=== PATIENT | female | born 1985 | race Caucasian/White ===

== ENCOUNTER → 2019-11-29 | Outpatient (CLI) | payer OTHER ==
--- NOTE | 2019-11-29 10:46 | XR ---
Thoracic spine HISTORY: Chronic back pain Frontal and lateral views of the thoracic spine submitted on 3 images There is a gentle spinal curvature present. Thoracic vertebral bodies show preserved height and bone mineralization. Multilevel spondylosis is present. Disc spaces are maintained. No paraspinal mass. IMPRESSION: Thoracic spondylosis, mild spinal curvature.
--- NOTE | 2019-11-29 10:48 | XR ---
Lumbosacral spine HISTORY: Degeneration of intervertebral disc, chronic back pain 5 views of lumbosacral spine The lumbar vertebral bodies show preserved height, alignment, and bone mineralization. There is multi level spondylosis. Some loss of disc height present L4-5. Some mild sclerosis present in the posterio r elements of the lower lumbar spine. IMPRESSION: Degenerative disc disease.
== END | disposition home or self-care (01) ==
LOC: RADXRMAIN 09:58
PROVIDERS: ATTEND Family Medicine
DX: M47.814 Spondylosis without myelopathy or radiculopathy, thoracic region (principal); M51.36 Other intervertebral disc degeneration, lumbar region; M43.8X4 Other specified deforming dorsopathies, thoracic region
CPT/HCPCS: 72070; 72110

== ENCOUNTER → 2020-02-21 | Outpatient (CLI) | payer OTHER ==
--- NOTE | 2020-02-21 10:57 | MR ---
MR thoracic spine without contrast HISTORY: Chronic mid back pain Multiplanar multisequence imaging through the thoracic spine. Correlation to plain film 11/29/2019 There is no evident spinal stenosis. Facet arthropathy changes are present at the lower thoracic spin e. Thoracic cord signal is maintained. No significant foraminal encroachment or disc herniation. Thor acic vertebral bodies show preserved height and alignment. There is a mild spinal curvature present. Disc spaces are maintained with mild loss of disc height and signal at T7-8, T6-7. Mild spondylosis, endplate discogenic marrow signal change present at T7-8. Probable hemangioma present in the posterio r aspect of T8. There is loss of disc height, signal at C6-7, posterior disc herniation noted at C6-7 on the sagittal images. IMPRESSION: Degenerative disc disease as described. Mild spinal curvature. Facet arthropathy.
== END | disposition home or self-care (01) ==
LOC: RADMRIMAIN 09:19
PROVIDERS: ATTEND Family Medicine
DX: M51.34 Other intervertebral disc degeneration, thoracic region (principal); M47.894 Other spondylosis, thoracic region; M43.8X4 Other specified deforming dorsopathies, thoracic region
CPT/HCPCS: 72146

== ENCOUNTER → 2020-03-21 | Outpatient (CLI) | payer OTHER ==
[2020-03-21 11:49] VITALS: BP 134/92; PULSE 80; RESP 20
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
== END | disposition home or self-care (01) ==
LOC: PNWHC3 10:57
PROVIDERS: ATTEND Anesthesiology
DX: M51.34 Other intervertebral disc degeneration, thoracic region (principal); M51.36 Other intervertebral disc degeneration, lumbar region; M47.814 Spondylosis without myelopathy or radiculopathy, thoracic region; M47.816 Spondylosis without myelopathy or radiculopathy, lumbar region; E66.9 Obesity, unspecified; M19.90 Unspecified osteoarthritis, unspecified site; F17.200 Nicotine dependence, unspecified, uncomplicated; Z68.36 Body mass index [BMI] 36.0-36.9, adult; Z79.1 Long term (current) use of non-steroidal anti-inflammatories (NSAID); Z79.890 Hormone replacement therapy
CPT/HCPCS: 99211

== ENCOUNTER 2020-04-04 06:01 | Day surgery (SDC) | payer OTHER ==
[2020-04-02 11:59] VITALS: BMI 36.6
[2020-04-04 06:19] VITALS: TEMP 96.5
[2020-04-04] MEDS: LACTATED RINGERS 1,000 ML IV SCH ×2 (06:24→06:51)
[2020-04-04] MEDS ORDERED: IOPAMIDOL M200 10 ML VIAL ONE (06:52)
[2020-04-04] MEDS ORDERED: MIDAZOLAM 2 MG/2 ML VIAL ONE (06:52)
[2020-04-04] MEDS ORDERED: fentaNYL (PF) 50 MCG/ML 2 ML AMP ONE (06:52)
[2020-04-04] MEDS ORDERED: DEXAMETHASONE SOD PHOSPHATE 10 MG/ML 1 ML VIAL ONE (06:52)
--- NOTE | 2020-04-04 07:18 | P.PCN ---
Date of Procedure: 04/04/20 Procedure(s) Performed: Diagnosis: thoracic degenerative disc disease POSTOPERATIVE DIAGNOSIS: Diagnoses: thoracic degenerative disc disease PROCEDURE thoracic Epidural steroid injection under fluoroscopic guidance at the T7-8 interspace using right paramedian approach thoracic epidurogram ANESTHESIA: Local with 1% lidocaine 3 ml and IV sedation with Versed and fentanyl, sedation time 13 minutes Fluoroscopy was used for the procedure and images were saved in the radiology portion of the chart. EBL: Minimal PROCEDURE INDICATION: The patient presents with thoracic pain unresponsive to conservative treatment. PROCEDURE DESCRIPTION / TECHNIQUE: The patient was seen and identified in the preoperative area. Risks, benefits, complications including but not limited to infections ,bleeding ,allergic reaction to the medications ,nerve damage and incomplete pain relief, and alternatives were discussed with the patient. The patient agreed to proceed with the procedure and signed the consent. IV was started, and vital signs were stable. Patient was taken to the OR and time out was completed. The patient was placed in the prone position on procedure table and a pillow was placed under the chest area. The thoracic area was prepped and draped in the usual sterile fashion. Conscious sedation was used during the procedure to decrease patients anxiety. Vital signs was monitored during the entire procedure. Using anterior-posterior fluoroscopy, the C7-T8 interlaminar space was identified, after counting the levels from C7 down towards and the skin over this site was marked and then infiltrated with 1% lidocaine subcutaneously. Subsequently, a 20-gauge Tuohy epidural needle was inserted and advanced toward the epidural space using the loss of resistance technique and guided by AP and lateral fluoroscopy. The correct needle position in the epidural space was verified. After negative aspiration for blood and CSF and in the absence of paresthesias, Isovue 200 2 mL's was injected under live fluoroscopy with good epidural spread. After negative aspiration, a 5 ml mixture containing 10 mg of dexamethasone, 3 mL of preservative free normal saline and 1 mL of 1% lidocaine was injected. Needle was withdrawn intact, skin was cleansed, and bandages were applied. COMPLICATIONS: None DISPOSITION / PLANS: The patient was placed in a supine position and transferred to the recovery area in a stable condition for observation. There was no evidence of lower extremity motor or sensory deficit after the procedure. Patient was discharged from the recovery room after meeting discharge criteria. Home discharge instructions were given to the patient by the staff. The patient will be scheduled a repeat procedure in 4 weeks.
[2020-04-04 07:26] VITALS: PULSE 71; RESP 18
[2020-04-04] MEDS ORDERED: IV FLUID CONTINUATION 300 ML IV ONE (07:27)
[2020-04-04 07:41] VITALS: BP 136/89
--- NOTE | 2020-04-04 07:48 | FL ---
EXAMINATION TYPE: FL guided pain mgmt statistic DATE OF EXAM: 04/04/2020 FLUOROSCOPY Fluoroscopy time of 9 seconds was used during thoracic spine epidural injection. 3 image/s document/ s the procedure.
== END 2020-04-04 07:47 | disposition home or self-care (01) ==
LOC: ORPAIN 06:01
PROVIDERS: ATTEND Anesthesiology
DX: G89.29 Other chronic pain (principal); M51.34 Other intervertebral disc degeneration, thoracic region; M47.894 Other spondylosis, thoracic region; M47.896 Other spondylosis, lumbar region; M51.36 Other intervertebral disc degeneration, lumbar region; R20.0 Anesthesia of skin; E07.9 Disorder of thyroid, unspecified; G43.909 Migraine, unspecified, not intractable, without status migrainosus; M50.20 Other cervical disc displacement, unspecified cervical region; L80 Vitiligo; F17.200 Nicotine dependence, unspecified, uncomplicated; E66.9 Obesity, unspecified; Z68.36 Body mass index [BMI] 36.0-36.9, adult; Z91.410 Personal history of adult physical and sexual abuse; Z79.1 Long term (current) use of non-steroidal anti-inflammatories (NSAID); Z79.890 Hormone replacement therapy; Z79.899 Other long term (current) drug therapy; Z98.890 Other specified postprocedural states; Z98.51 Tubal ligation status; Z87.730 Personal history of (corrected) cleft lip and palate
CPT/HCPCS: 81025; 62321; J2250; J1100; J3010; Q9966; 99152

== ENCOUNTER → 2020-04-15 | Outpatient (CLI) | payer OTHER ==
--- NOTE | 2020-04-15 12:11 | MR ---
EXAMINATION TYPE: MR lumbar spine wo con DATE OF EXAM: 04/15/2020 COMPARISON: None HISTORY: 34-year-old female Chronic Lower Back Pain with Numbness into Left Hip and back of Left Leg on and off 10years TECHNIQUE: Multiplanar, multisequence images of the lumbar spine were acquired. FINDINGS: Vertebral body heights are preserved. Alignment is maintained. Mild heterogeneous marrow signal likel y red marrow. No suspicious bone marrow placement. Mild degenerative disc disease L4-L5 and L5-S1 with desiccated and bulging discs. Small posterior bebo ular fissure at L4-L5. Facet arthropathy also present in the lower lumbar spine. Conus medullaris is normal. No prevertebral or paravertebral soft tissue abnormality. From T12 through L4 levels, no spinal canal or foraminal stenosis. At L4-L5, facet arthropathy and mild disc bulge. No spinal canal stenosis. No significant neuroforami nal stenosis. At L5-S1, facet arthropathy. Bulging disc. There is mild right neuroforaminal stenosis. Disc material closely approaches but does not clearly abut the traversing left S1 nerve root. IMPRESSION: 1. Mild degenerative disc disease L4-L5 and L5-S1 characterized by desiccated and bulging discs. Smal l posterior annular fissure also noted at L4-L5. 2. No large focal disc herniation or spinal canal stenosis. 3. Changes result in mild right neuroforaminal stenosis at L5-S1. Disc material also closely approach es but does not clearly abut the traversing left S1 nerve root at this level.
== END | disposition home or self-care (01) ==
LOC: RADMRIMAIN 07:00
PROVIDERS: ATTEND Anesthesiology
DX: M48.061 Spinal stenosis, lumbar region without neurogenic claudication (principal); M51.16 Intervertebral disc disorders with radiculopathy, lumbar region; M51.17 Intervertebral disc disorders with radiculopathy, lumbosacral region
CPT/HCPCS: 72148

== ENCOUNTER 2020-05-02 08:46 | Day surgery (SDC) | payer OTHER ==
[2020-04-29 15:28] VITALS: BMI 38.8
[2020-05-02] MEDS ORDERED: LACTATED RINGERS 1,000 ML IV SCH (08:59)
[2020-05-02 09:08] VITALS: TEMP 97.9
[2020-05-02] MEDS ORDERED: LIDOCAINE 1% (10MG/ML) FOR IV START INTRADERMA ONE (09:15)
[2020-05-02] MEDS ORDERED: IOPAMIDOL M200 10 ML VIAL ONE (09:52)
[2020-05-02] MEDS ORDERED: DEXAMETHASONE SOD PHOSPHATE 10 MG/ML 1 ML VIAL ONE (09:52)
[2020-05-02] MEDS ORDERED: MIDAZOLAM 2 MG/2 ML VIAL ONE (09:52)
[2020-05-02] MEDS ORDERED: fentaNYL (PF) 50 MCG/ML 2 ML AMP ONE (09:52)
--- NOTE | 2020-05-02 10:25 | P.PCN ---
Date of Procedure: 05/02/20 Procedure(s) Performed: Diagnosis: thoracic degenerative disc disease POSTOPERATIVE DIAGNOSIS: Diagnoses: thoracic degenerative disc disease PROCEDURE thoracic Epidural steroid injection under fluoroscopic guidance at the T7-8 interspace using right paramedian approach thoracic epidurogram ANESTHESIA: Local with 1% lidocaine 3 ml and IV sedation with Versed and fentanyl, sedation time 13 minutes Fluoroscopy was used for the procedure and images were saved in the radiology portion of the chart. EBL: Minimal PROCEDURE INDICATION: The patient presents with thoracic pain unresponsive to conservative treatment. PROCEDURE DESCRIPTION / TECHNIQUE: The patient was seen and identified in the preoperative area. Risks, benefits, complications including but not limited to infections ,bleeding ,allergic reaction to the medications ,nerve damage and incomplete pain relief, and alternatives were discussed with the patient. The patient agreed to proceed with the procedure and signed the consent. IV was started, and vital signs were stable. Patient was taken to the OR and time out was completed. The patient was placed in the prone position on procedure table and a pillow was placed under the chest area. The thoracic area was prepped and draped in the usual sterile fashion. Conscious sedation was used during the procedure to decrease patients anxiety. Vital signs was monitored during the entire procedure. Using anterior-posterior fluoroscopy, the C7-T8 interlaminar space was identified, after counting the levels from C7 down towards and the skin over this site was marked and then infiltrated with 1% lidocaine subcutaneously. Subsequently, a 20-gauge Tuohy epidural needle was inserted and advanced toward the epidural space using the loss of resistance technique and guided by AP and lateral fluoroscopy. The correct needle position in the epidural space was verified. After negative aspiration for blood and CSF and in the absence of paresthesias, Isovue 200 2 mL's was injected under live fluoroscopy with good epidural spread. After negative aspiration, a 5 ml mixture containing 10 mg of dexamethasone, 3 mL of preservative free normal saline and 1 mL of 1% lidocaine was injected. Needle was withdrawn intact, skin was cleansed, and bandages were applied. COMPLICATIONS: None DISPOSITION / PLANS: The patient was placed in a supine position and transferred to the recovery area in a stable condition for observation. There was no evidence of lower extremity motor or sensory deficit after the procedure. Patient was discharged from the recovery room after meeting discharge criteria. Home discharge instructions were given to the patient by the staff. The patient will be scheduled for follow-up clinic in 6 weeks
[2020-05-02 10:42] VITALS: BP 132/87; PULSE 64; RESP 16
--- NOTE | 2020-05-02 15:00 | FL ---
EXAMINATION TYPE: FL guided pain mgmt statistic DATE OF EXAM: 05/02/2020 CLINICAL HISTORY: Epidural pain injection TECHNIQUE: Fluoroscopy. COMPARISON: None. FINDINGS: Fluoroscopic guidance was provided during procedure performed by Dr. Rojas. A total of 8 se conds of fluoroscopic time was utilized during the procedure and 3 spot images was acquired. Please s ee operative note for additional details. IMPRESSION: As Above.
== END 2020-05-02 10:48 | disposition home or self-care (01) ==
LOC: ORPAIN 08:46
PROVIDERS: ATTEND Anesthesiology
DX: M51.34 Other intervertebral disc degeneration, thoracic region (principal); M47.814 Spondylosis without myelopathy or radiculopathy, thoracic region
CPT/HCPCS: 81025; 62321; J2250; J1100; J3010; Q9966; 99152

== ENCOUNTER → 2020-05-08 | Outpatient (CLI) | payer OTHER ==
[2020-05-08 09:03] VITALS: BP 135/93; PULSE 84; RESP 16; TEMP 98.2
--- NOTE | 2020-05-08 09:23 | P.PAINPG ---
Subjective This is a 34-year-old patient referred by Dr. James Gunter with a chief complaint of chronic pain in thoracic and lumbar spine. We initially saw her in 03/2020 and we felt her pain may be coming from disc bulges in her thoracic spine specifically at T7-T8. Since we have seen her she has had 2 T7-T8 ILESI's on 04/04 and 05/02 we ordered a lumbar MRI which showed mild disc bulges at L4-L5 and L5-S1. She is here for follow up today. She notes of the thoracic epidural steroid injections helped her very much. Over today her main complaint is her low back. Pain starts in low back and radiates down to the left hip. Pain occasionally radiates down the anterior thigh and she also notes isolated bilateral foot numbness. An overall described as sharp stabbing and tingling. No alleviating factors in any form of physical activity exacerbates pain. Currently an 8/10. Pain is worse with activity, twisting, standing for long periods of time bending and better with repositioning, TENS unit. She works long hours at [employer], and pain is particularly on the days that she is working. Patient has been taking medications from primary care physician including Celebrex with minimal relief. In the past, she has been on oxycodone, [place], lortab with no significant benefit. Patient denies adverse drug effects from medications. Patient also denies new-onset weakness, bowel/bladder incontinence, or any other signs or symptoms of cauda equina syndrome. There are no signs of acute intoxication, and no indications of medication diversion or overuse. In addition to above, 13-point review of systems is also negative for chest pain, shortness of breath, changes in vision, changes in hearing, new onset weakness, abdominal pain, diarrhea, extreme fatigue, malaise, fever, skin changes, homicidal or suicidal ideation, or bowel or bladder incontinence. Physical exam: Vital Signs: Reviewed in EMR GENERAL: Well appearing, in no acute distress PSYCH: Mood and affect is appropriate. Awake, alert, and oriented SKIN: Skin color, texture, turgor normal, no rashes or lesions HEENT: Normocephalic, atraumatic. EOM intact CV: No pedal edema RESP: Respirations are unlabored, no audible wheezing GI: Abdomen non-distended MUSCULOSKELETAL: Bilateral upper and lower extremity strength is normal and symmetric. No atrophy or tone abnormalities are noted. Neck: No pain to palpation over the cervical paraspinous muscles. Beaver's sign negative. No obvious deformity or signs of trauma. Normal cervical lordotic curve and normal cervical spine range of motion Thoracic spine: Mild Tenderness to palpation along bilateral thoracic paraspinal muscles. Lumbar spine: Straight leg raising in the sitting position is negative for radicular pain. Tenderness to palpation over the lumbar spine and paraspinous muscles. Positive for pain with facet loading and back extension/rotation. Buttocks: pain to palpation over the PSIS, Adrián test is negative Extremities: Peripheral joint ROM is full and pain free without obvious instability or laxity in all four extremities. No edema or skin discolorations noted. Gait: Gait is normal NEUR: Bilateral upper and lower extremity coordination and muscle stretch reflexes are physiologic and symmetric. Negative clonus. Cranial nerves are grossly intact. Imaging: X-ray lumbosacral spine done at [facility] on 11/29/2019 shows degenerative disc disease with disc height loss at L4-5 and multilevel spondylosis. MRI thoracic spine done on 02/21/2020 shows facet arthropathic changes in the lower thoracic spine, no evidence spinal canal stenosis, no significant foraminal encroachment. Mild disc height loss at T7-8 and T6-7 posterior disc herniation noted at C6-7 MRI Lumbar spine 04/2020 shows mild degenerative disc disease at L4-L5 and L5-S1 characterized by desiccation and bulging disks. Small posterior annular fissure also noted at L4-L5. Changes result in mild right neuroforaminal stenosis at L5-S1. Assessment: 1. Thoracic and lumbar spondylosis 2. Thoracic and lumbar degenerative disc disease 3. Obesity 4. Chronic nicotine use Plan: 1. Explanation: Diagnoses, prognoses, and multiple treatment options including but not limited to physical therapy, interventional therapies, medication management were discussed with the patient and all questions were answered to the patient's satisfaction. 2. Investigations: None 3. Counseling: The patient was counseled for 3 minutes on SMOKING CESSATION. Specifically, the patient was instructed regarding the importance of smoking cessation in the context of both chronic pain and overall health. 4. Procedures: L5-S1 interlaminar epidural left paramedian approach to be scheduled. If this does not work we can consider medial branch workup given that a majority of her pain is located in the low back. Some element of sacroiliac joint dysfunction given that she is significant pain over her left buttock. 5. Consultations: None 6. Medications: No changes 7. Disposition: For above-mentioned procedure Past Medical History Past Medical History: Osteoarthritis (OA), Skin Disorder, Thyroid Disorder Additional Past Medical History / Comment(s): migraines, bulging disks in neck, deteriorating disks in back, vitiligo, History of Any Multi-Drug Resistant Organisms: None Reported Past Surgical History: Section, Tubal Ligation, Uterine Ablation Additional Past Surgical History / Comment(s): surgery for incompelte cleft lip, sinus surgery Past Anesthesia/Blood Transfusion Reactions: No Reported Reaction Smoking Status: Current every day smoker - Past Family History Mother Family Medical History: No Reported History Smoking Status Current every day smoker Pain Intensity [Back] 8 Hx Alcohol Use (MH) Yes Home Medications: Ambulatory Orders PQRS Measure Charge Sheet Measure #226: Tobacco Use: Screen & Cessation Intervention: Pt screened for tobacco use AND intervention given Measure #111: Pneumonia Vaccination: Pneumococcal vaccine NOT administered or previously given Measure #47: Advance Care Plan: Advance care planning discussed & documented, pt chose/unable to give Measure #412: Opioid Treatment Agreement: No documentation of signed opioid treatment agreement Measure #408: Opioid Therapy Follow-up Evaluation: Patient had NO f/u eval minimum every 3 months during opioid therapy Measure #317: Preventitive Care & Scrn High Bld Press & F/U: Normal blood pressure, f/u not required Measure #128: Body Mass Index (BMI) Screening & Follow-up: BMI documented within normal parameters Measure #131: Pain Assessment & Follow-up: Pain positive & plan documented Measure #431: Unhealthy Alcohol Use Preventative Care & Scrn: Patient not identified as an unhealthy alcohol user PQRS Narrative: Smoking Status Current every day smoker Pain Intensity [Back] 8 Scale Used Numeric (1 - 10) Hx Alcohol Use (MH) Yes: occasional Home Medications: Ambulatory Orders Celecoxib [CeleBREX] 100 mg PO BID 03/20/20 Levothyroxine Sodium [Synthroid] 150 mcg PO QAM 03/20/20 busPIRone HCl [Buspar] 10 mg PO TID 03/20/20 Controlled Substance Measures - Controlled Substance Measures Is patient prescribed a controlled substance at discharge?: No
== END | disposition home or self-care (01) ==
LOC: PNWHC3 08:50
PROVIDERS: ATTEND Anesthesiology
DX: G89.29 Other chronic pain (principal); M51.26 Other intervertebral disc displacement, lumbar region; M51.27 Other intervertebral disc displacement, lumbosacral region; M51.36 Other intervertebral disc degeneration, lumbar region; M51.34 Other intervertebral disc degeneration, thoracic region; M47.816 Spondylosis without myelopathy or radiculopathy, lumbar region; M47.814 Spondylosis without myelopathy or radiculopathy, thoracic region; E66.9 Obesity, unspecified; Z68.38 Body mass index [BMI] 38.0-38.9, adult; F17.200 Nicotine dependence, unspecified, uncomplicated; Z79.1 Long term (current) use of non-steroidal anti-inflammatories (NSAID); Z79.899 Other long term (current) drug therapy
CPT/HCPCS: 99211

== ENCOUNTER 2020-05-23 08:10 | Day surgery (SDC) | payer OTHER ==
[2020-05-17 13:16] VITALS: BMI 38.7
[2020-05-23 09:09] VITALS: TEMP 97
[2020-05-23] MEDS: LACTATED RINGERS 1,000 ML IV SCH ×2 (09:19→09:59)
[2020-05-23] MEDS ORDERED: LIDOCAINE 1% (10MG/ML) FOR IV START INTRADERMA ONE (09:19)
[2020-05-23] MEDS ORDERED: IOPAMIDOL M200 10 ML VIAL ONE (10:01)
[2020-05-23] MEDS ORDERED: fentaNYL (PF) 50 MCG/ML 2 ML AMP ONE (10:01)
[2020-05-23] MEDS ORDERED: MIDAZOLAM 2 MG/2 ML VIAL ONE (10:01)
[2020-05-23] MEDS ORDERED: methylPREDNISolone ACETATE 80 MG/ML 1 ML VIAL ONE (10:01)
--- NOTE | 2020-05-23 10:12 | P.PCN ---
Date of Procedure: 05/23/20 Description of Procedure: PREOPERATIVE DIAGNOSIS: Lumbar radiculopathy POSTOPERATIVE DIAGNOSIS: Same PROCEDURE PERFORMED: Interlaminar Epidural Steroid Injection at the L5-S1 level SURGEON: Da Spears MD ANESTHESIA: Local with 1% lidocaine 3 ml and IV sedation with Versed and fentanyl, sedation time 6 min Fluoroscopy was used for the procedure and images were saved in the radiology portion of the chart. EBL: Minimal PROCEDURE INDICATION: The patient presents with lumbar radicular symptoms unres ponsive to conservative treatment. This is the first lumbar epidural steroid injection PROCEDURE DESCRIPTION / TECHNIQUE: The patient was seen and identified in the preoperative area. Risks, benefits, complications including but not limited to infections ,bleeding ,allergic reaction to the medications ,nerve damage and incomplete pain relief, and alternatives were discussed with the patient. The patient agreed to proceed with the procedure and signed the consent. IV was started, and vital signs were stable. Patient was taken to the OR and time out was completed. The patient was placed in the prone position on procedure table and a pillow was placed under the chest area. The cervical area was prepped and draped in the usual sterile fashion. Conscious sedation was used during the procedure to decrease patients anxiety. Vital signs was monitored during the entire procedure. Using anterior-posterior fluoroscopy, the L5-S1 interlaminar space was identified and the skin over this site was marked and then infiltrated with 1% lidocaine subcutaneously. Subsequently, a 20-gauge Tuohy epidural needle was inserted and advanced toward the epidural space using the loss of resistance technique and guided by AP and lateral views. The correct needle position in the epidural space was verified. After negative aspiration for blood and CSF and in the absence of paresthesias, Isovue 200 2 mL's was injected under live fluoroscopy with good epidural spread. After negative aspiration, a 5 mL mixture containing 80 mg Depo-Medrol and 3 mL normal saline preservative-free and 1 mL 1% lidocaine. Needle was withdrawn intact, skin was cleansed, and bandages were applied. NOTE: Recommend using longer Tuohy needle in next procedure COMPLICATIONS: None DISPOSITION / PLANS: The patient was placed in a supine position and transferred to the recovery area in a stable condition for observation. There was no evidence of lower extremity motor or sensory deficit after the procedure. Patient was discharged from the recovery room after meeting discharge criteria. Home discharge instructions were given to the patient by the staff. The patient will be scheduled a repeat procedure in 2-4 weeks.
[2020-05-23] MEDS ORDERED: IV FLUID CONTINUATION 900 ML IV ONE (10:16)
[2020-05-23 10:22] VITALS: PULSE 70; RESP 18
--- NOTE | 2020-05-23 10:33 | FL ---
EXAMINATION TYPE: FL guided pain mgmt statistic DATE OF EXAM: 05/23/2020 COMPARISON: NONE HISTORY: Pain injection TECHNIQUE: Fluoroscopy. FINDINGS: Fluoroscopic guidance was provided during procedure for performing physician. A total of 17 seconds of fluoroscopic time was utilized during the procedure and 2 spot images was acquired. Ple ase see operative report for additional details. IMPRESSION: As Above.
[2020-05-23 10:37] VITALS: BP 132/94
== END 2020-05-23 10:46 | disposition home or self-care (01) ==
LOC: ORPAIN 08:10
PROVIDERS: ATTEND Anesthesiology
DX: M54.16 Radiculopathy, lumbar region (principal)
CPT/HCPCS: 81025; 62323; J2250; J1040; J3010; Q9966

== ENCOUNTER 2020-06-11 06:09 | Day surgery (SDC) | payer OTHER ==
[2020-06-11 06:50] VITALS: RESP 16; TEMP 98.3
[2020-06-11] MEDS ORDERED: LACTATED RINGERS 1,000 ML IV ONE (07:03)
[2020-06-11] MEDS ORDERED: LIDOCAINE 1% (10MG/ML) FOR IV START INTRADERMA ONE (07:04)
[2020-06-11] MEDS ORDERED: methylPREDNISolone ACETATE 80 MG/ML 1 ML VIAL ONE (07:13)
[2020-06-11] MEDS ORDERED: fentaNYL (PF) 50 MCG/ML 2 ML AMP ONE (07:13)
[2020-06-11] MEDS ORDERED: MIDAZOLAM 2 MG/2 ML VIAL ONE (07:13)
[2020-06-11] MEDS ORDERED: IOPAMIDOL M200 10 ML VIAL ONE (07:13)
--- NOTE | 2020-06-11 07:26 | P.PCN ---
Date of Procedure: 06/11/20 Procedure(s) Performed: PREOPERATIVE DIAGNOSIS: 1- Lumbar Degenerative Disc Diseases 2-Lumbar Radiculopathy POSTOPERATIVE DIAGNOSIS: 1-Lumber Degenerative Disc Diseases 2-Lumbar Radiculopathy PROCEDURE 1. Lumbar epidural steroid injection under fluoroscopic guidance at the L5-S1 level. (Fluoroscopy imaging was available in radiology department) 2. Lumbar epidurogram. ANESTHESIA: Local with 1% lidocaine 3 ml and , moderate sedation with intravenous Versed 1 mg ,and fentanyle 50 Mcg EBL: Minimal PROCEDURE INDICATION: The patient with low back pain and radiculitis symptoms unresponsive to conservative treatment. Fluoroscopy was used to optimize visualization of the needle placement and to maximize safety. PROCEDURE DESCRIPTION / TECHNIQUE: The patient was seen and identified in the preoperative area. Risks, benefits, complications including but not limited to infections ,bleeding ,allergic reaction to the medications ,nerve damage and not complete pain releife , and alternatives were discussed with the patient. The patient agreed to proceed with the procedure and signed the consent. IV was started, and vital signs were stable. Patient was taken to the OR and time out was completed. The patient was placed in the prone position on procedure table and a pillow was placed under the abdomen to reduce lumbar lordosis. The lumbosacral area was prepped and draped in the usual sterile fashion.ere closely monitored during the procedure. Conscious sedation was used during the procedure to decrease patients anxiety. Vital signs was monitered during the entire procedure. Using anterior-posterior fluoroscopy, the L5-S1 interlaminar space was i dentified and the skin over this site was marked and then infiltrated with 1% lidocaine subcutaneously. Subsequently, a 20-gauge Tuohy epidural needle was inserted and advanced toward the epidural space using the ``Loss of resistance technique and guided by AP and lateral fluoroscopy. The correct needle position in the epidural space was verified with the injection of 2 mL of the water soluble contrast dye Isovue 200 contrast and observing an excellent epidurogram with the epidural spread of the dye, after negative aspiration for blood and CSF and in the absence of paresthesias. Again after negative aspiration, a 6 ml mixture containing 80 mg of Depo-medrol , and 2 ml of preservative free Normal Saline, and 2 ml of preservative free lidocaine 1% solution was injected and a washout of epidurogram was seen. Needle was withdrawn intact, skin was cleansed, and bandages were applied. COMPLICATIONS: None DISPOSITION / PLANS: The patient was placed in a supine position and transferred to the recovery area in a stable condition for observation. There was no evidence of lower extremity motor or sensory deficit after the procedure. Patient was discharged from the recovery room after meeting discharge criteria. Home discharge instructions were given to the patient by the staff. The patient was reexamined prior to discharge. The patient will schedule a follow up in the clinic in 2-4 weeks.
[2020-06-11] MEDS ORDERED: IV FLUID CONTINUATION 1,000 ML IV ONE (07:28)
[2020-06-11] MEDS ORDERED: LACTATED RINGERS 1,000 ML IV SCH (07:31)
[2020-06-11 07:43] VITALS: BP 128/84; PULSE 90
--- NOTE | 2020-06-11 07:59 | FL ---
EXAMINATION TYPE: FL guided pain mgmt statistic DATE OF EXAM: 06/11/2020 CLINICAL HISTORY: Low back pain. TECHNIQUE: Fluoroscopy. COMPARISON: None. FINDINGS: Fluoroscopic guidance was provided during pain relief procedure performed by Dr. Rosales . A total of 1 seconds of fluoroscopic time was utilized during the procedure and 1 spot images are acquired. Single image acquired shows needle localization at the lumbosacral junction. IMPRESSION: As Above.
== END 2020-06-11 07:58 ==
LOC: ORPAIN 06:09
PROVIDERS: ATTEND Specialist
DX: M51.16 Intervertebral disc disorders with radiculopathy, lumbar region (principal); M47.26 Other spondylosis with radiculopathy, lumbar region
CPT/HCPCS: 81025; 62323; J2250; J1040; J3010; Q9966

== ENCOUNTER → 2020-07-03 | Outpatient (CLI) | payer OTHER ==
[2020-07-03 09:02] VITALS: BP 127/88; PULSE 81; RESP 20; TEMP 98.5
--- NOTE | 2020-07-03 09:22 | P.PAINPG ---
Subjective Progress Note Date: 07/03/20 follow-up visit for this 34 years old female with a chronic history of severe midback pain and low back pain she is diagnosed with thoracic spondylosis and lumbar spondylosis, lumbar degenerative disc disease, recently we did lumbar epidural steroid injections 2, she reported that she had a few weeks of improvement of her low back pain but currently she is complaining of severe low back pain which is increased with any activity, she denies any motor or sensory deficit she denies any change in bowel movement or urination and that is no fever or night sweats, the pain mostly in the low back area and currently she has no radicular symptoms Objective - Vital Signs Vital signs: Vital Signs Temp 98.5 F 07/03/20 08:51 Pulse 81 07/03/20 08:51 Resp 20 07/03/20 08:51 BP 127/88 07/03/20 08:51 Pulse Ox 99 07/03/20 08:51 Intake & Output 07/02/20 07/03/20 07/03/20 18:59 06:59 18:59 Weight 106.141 kg - Exam Physical Examinations : -Constitutiona : Cooperative , not in acute distress . -HEENT : nech : supple , no Lymphadenopathy , normal thyroid size . : eyes : no ptosis , no icterus, no photophobia . - neurologic : Cranial nerve II to XII intact , no focal neurological deffecit . -psychatric : alert , oriented X 3 , appropriate affect , intact judgment and insight . -Lymphatic : no Lymphadenopathy . - musculoskeltal : Lumber spine moter stegnth lower extremities ,thigh and legs 5/5 Right side , 5/5 Left side deep tendon reflexes : normal Knee Jerk , normal ankle Jerk lumber facet Loading Test =positive Right , positive Left Range of motion of the lumbar spine Flexion 60 degrees, extension 30 degrees strait leg raising test = negative bilaterally Fabere test= negative bilaterally. mild tenderness over the Sacroiliac joint on the Right , and Left sides MRI of the lumbar spine= L4 5 and L5-S1 facet degeneration and lumbar degenerat bonnie disc disease Assessment and Plan Plan: Assessment and plan=1-lumbar degenerative disc disease. 2-lumbar spondylosis with lumbar facet arthropathy without myelopathy. She continued to have severe low back pain after lumbar epidural steroid injections 2. She will be good candidate to have diagnostic medial branch block lumbar area at L3 , L4 , L5 (2 target the facet joint at L4- L5 and L5-S1) Time with Patient: Less than 30 PQRS Measure Charge Sheet Measure #130: Documentation of Current Meds in Medical Chart: Patient's medications documented in chart Measure #226: Tobacco Use: Screen & Cessation Intervention: Pt screened for tobacco use AND intervention given Measure #111: Pneumonia Vaccination: Pneumococcal vaccine NOT administered or previously given Measure #47: Advance Care Plan: Advance care planning discussed & documented, pt chose/unable to give Measure #412: Opioid Treatment Agreement: No documentation of signed opioid treatment agreement Measure #408: Opioid Therapy Follow-up Evaluation: Patient had NO f/u eval minimum every 3 months during opioid therapy Measure #317: Preventitive Care & Scrn High Bld Press & F/U: Normal blood pressure, f/u not required Measure #128: Body Mass Index (BMI) Screening & Follow-up: BMI documented ABOVE normal parameters - f/u documented Measure #131: Pain Assessment & Follow-up: Pain positive & plan documented, Follow-up scheduled Measure #431: Unhealthy Alcohol Use Preventative Care & Scrn: Patient not identified as an unhealthy alcohol user PQRS Narrative: Smoking Status Current every day smoker Blood Pressure 127/88 Pain Intensity [Lower Back] 8 Scale Used Numeric (1 - 10) Hx Alcohol Use (MH) Yes: occasional Home Medications: Ambulatory Orders Celecoxib [CeleBREX] 100 mg PO BID 03/20/20 Levothyroxine Sodium [Synthroid] 150 mcg PO QAM 03/20/20 busPIRone HCl [Buspar] 10 mg PO TID 03/20/20 Ibuprofen 400 mg PO DIRECTED PRN 05/17/20 Controlled Substance Measures - Controlled Substance Measures Is patient prescribed a controlled substance at discharge?: No
== END | disposition home or self-care (01) ==
LOC: PNWHC3 08:40
PROVIDERS: ATTEND Anesthesiology
DX: M51.36 Other intervertebral disc degeneration, lumbar region (principal); M47.816 Spondylosis without myelopathy or radiculopathy, lumbar region; M46.96 Unspecified inflammatory spondylopathy, lumbar region; F17.200 Nicotine dependence, unspecified, uncomplicated; Z79.899 Other long term (current) drug therapy; Z79.890 Hormone replacement therapy
CPT/HCPCS: 99211

== ENCOUNTER 2020-08-09 09:22 | Day surgery (SDC) | payer OTHER ==
[~2020-08-09 09:22] MED LIST: LACTATED RINGERS 1,000 ML IV SCH
[2020-08-09 11:01] VITALS: TEMP 97.8
[2020-08-09] MEDS ORDERED: LACTATED RINGERS 1,000 ML IV ONE (11:01)
[2020-08-09] MEDS ORDERED: IV FLUID CONTINUATION 1,000 ML IV ONE (11:01)
[2020-08-09] MEDS ORDERED: LIDOCAINE 1% (10MG/ML) FOR IV START INTRADERMA ONE (11:01)
[2020-08-09] MEDS ORDERED: ROPIVACAINE 5MG/ML 20ML VIAL ONE (11:34)
[2020-08-09] MEDS ORDERED: methylPREDNISolone ACETATE 40 MG/ML 1 ML VIAL ONE (11:34)
[2020-08-09] MEDS ORDERED: MIDAZOLAM 2 MG/2 ML VIAL ONE (11:34)
[2020-08-09] MEDS ORDERED: PROPOFOL 10 MG/ML 20 ML VIAL IV ONE (11:34)
--- NOTE | 2020-08-09 11:54 | P.PCN ---
Date of Procedure: 08/09/20 Procedure(s) Performed: PREOPERATIVE DIAGNOSIS : 1- Lumbar spondylosis with Facet Arthropathy without myelopathy . 2- Lumber degenerative disc disease POSTOPERATIVE DIAGNOSIS: 1- Lumbar spondylosis with Facet Arthropathy without myelopathy . 2- Lumber degenerative disc disease PROCEDURE: Diagnostic bilateral L3 , L4 , and L5 medial branch block under fluoroscopy guidance(fluoroscopy images available in the radiology Department ) ( To target the facet joint between L4-5 , and L5-S1 ) ANESTHESIA:, Monitored anesthesia care provided by anesthesia department. EBL: Minimal COMPLICATION: None PROCEDURE INDICATION: Chronic low back pain secondary to Facet arthropathy unresponsive to conservative treatment. PROCEDURE DESCRIPTION: the patient was seen and identified in the preop holding area , risks and benefits and possible complications of the procedure and alternative were discussed with the patient, and the patient agreed to proceed with the procedure and signed the consent and vital signs monitored dur ing the procedure and fluoroscopy was used to maximize the benefit and accuracy of the needle placement, and sedation was given to decrease patient anxiety, patient was taken to the procedure room and placed in prone position vital signs monitored in the back prepped with chlorhexidine X3 then under strict sterile technique using a right oblique fluoroscopy ,the junction of the transverse process and the superior articulating process of the right L3 , L4 , and L5 vertebra which corresponding to the fluoroscopy image of the eye of the Pan dog on the block side for the medial branches and subsequently , after local infiltration of skin and subcu tissuies with Ropivacaine 0.5 % , one mL at each level ,then 22-gauge Quincke-type needles , 3 needle was used , each one of them placed at the junction of the base of the transverse process and the superior articular process at the appropriate level, and the needle was advanced until the periosteum contacted, needle placement confirmed with AP oblique and lateral view and after appropriate needle placement confirmed, and after negative aspiration for heme and CSF and there was no paresthesia 1-1/2 mL of Ropivacaine 0.5% mixed with 20 mg Depo-Medrol , then half mL injected at each level after negative aspiration the needle subsequently removed and the same procedure repeated for the left side at left side at L3 , L4 and L5 levels. At the end of the procedure and the needles removed and a bandage applied after the skin was cleaned the cleaning solution patient taken to recovery room in stable condition and monitors in the recovery room for 20-30 minutes and discharged home in stable condition after discharge criteria met and patient will follow up with the pain clinic in 2-4 weeks Recommend to use 5 inch needles for the next procedure
[2020-08-09 12:02] VITALS: RESP 17
[2020-08-09 12:14] VITALS: BP 118/82; PULSE 84
--- NOTE | 2020-08-09 14:04 | FL ---
Fluoroscopy HISTORY: Pain 39 seconds fluoroscopy time supplied to the referring clinician. 4 intraoperative C-arm images docum ent the procedure. See dictated report from anesthesia.
== END 2020-08-09 12:32 | disposition home or self-care (01) ==
LOC: ORPAIN 09:22
PROVIDERS: ATTEND Specialist
DX: G89.29 Other chronic pain (principal); M47.816 Spondylosis without myelopathy or radiculopathy, lumbar region; M51.36 Other intervertebral disc degeneration, lumbar region; E03.9 Hypothyroidism, unspecified; F17.210 Nicotine dependence, cigarettes, uncomplicated; F41.9 Anxiety disorder, unspecified; Z79.890 Hormone replacement therapy; Z79.1 Long term (current) use of non-steroidal anti-inflammatories (NSAID); Z79.899 Other long term (current) drug therapy
CPT/HCPCS: 81025; 64493; 64494; J2250; J1030; J2704; J2795

== ENCOUNTER 2020-08-23 06:35 | Day surgery (SDC) | payer OTHER ==
[2020-08-21 14:30] VITALS: BMI 37.7
[2020-08-23 06:57] VITALS: RESP 16; TEMP 97.3
[2020-08-23] MEDS ORDERED: LACTATED RINGERS 1,000 ML IV ONE (07:00)
[2020-08-23] MEDS ORDERED: LIDOCAINE 1% (10MG/ML) FOR IV START INTRADERMA ONE (07:00)
[2020-08-23] MEDS ORDERED: fentaNYL (PF) 50 MCG/ML 2 ML AMP ONE (07:35)
[2020-08-23] MEDS ORDERED: MIDAZOLAM 2 MG/2 ML VIAL ONE (07:35)
[2020-08-23] MEDS ORDERED: IOPAMIDOL M200 10 ML VIAL ONE (07:38)
[2020-08-23] MEDS ORDERED: ROPIVACAINE 5MG/ML 20ML VIAL ONE (07:38)
--- NOTE | 2020-08-23 07:59 | P.PCN ---
Date of Procedure: 08/23/20 Description of Procedure: PREOPERATIVE DIAGNOSIS : 1- Lumbar spondylosis with Facet Arthropathy without myelopathy . 2- Lumber degenerative disc disease POSTOPERATIVE DIAGNOSIS: 1- Lumbar spondylosis with Facet Arthropathy without myelopathy . 2- Lumber degenerative disc disease PROCEDURE: Diagnostic bilateral L3 , L4 , and L5 medial branch block under fluoroscopy guidance(fluoroscopy images available in the radiology Department ) ( To target the facet joint between L4-5 , and L5-S1 ) ANESTHESIA:, Monitored anesthesia care provided by anesthesia department. EBL: Minimal COMPLICATION: None PROCEDURE INDICATION: Chronic low back pain secondary to Facet arthropathy unresponsive to conservative treatment. PROCEDURE DESCRIPTION: the patient was seen and identified in the preop holding area , risks and benefits and possible complications of the procedure and alternative were discussed with the patient, and the patient agreed to proceed with the procedure and signed the consent and vital signs monitored duri ng the procedure and fluoroscopy was used to maximize the benefit and accuracy of the needle placement, and sedation was given to decrease patient anxiety, patient was taken to the procedure room and placed in prone position vital signs monitored in the back prepped with chlorhexidine X3 then under strict sterile technique using a right oblique fluoroscopy ,the junction of the transverse process and the superior articulating process of the right L3 , L4 , and L5 vertebra which corresponding to the fluoroscopy image of the eye of the Pan dog on the block side for the medial branches and subsequently , after local infiltration of skin and subcu tissuies with Ropivacaine 0.5 % , one mL at each level ,then 22-gauge Quincke-type needles , 5 inch needle was used , each one of them placed at the junction of the base of the transverse process and the superior articular process at the appropriate level, and the needle was advanced until the periosteum contacted, needle placement confirmed with AP oblique and lateral view and after appropriate needle placement confirmed, and after negative aspiration for heme and CSF and there was no paresthesia 1 mL of Ropivacaine 0.5% L injected at each level after negative aspiration the needle subsequently removed and the same procedure repeated for the left side at left side at L3 , L4 and L5 levels. At the end of the procedure and the needles removed and a bandage applied after the skin was cleaned the cleaning solution patient taken to recovery room in stable condition and monitors in the recovery room for 20-30 minutes and discha rged home in stable condition after discharge criteria met and patient will follow up with the pain clinic in 2-4 weeks
[2020-08-23] MEDS ORDERED: IV FLUID CONTINUATION 1,000 ML IV ONE (08:04)
[2020-08-23 08:27] VITALS: BP 137/98; PULSE 82
--- NOTE | 2020-08-23 10:11 | FL ---
Fluoroscopy HISTORY: Pain 25 seconds fluoroscopy time supplied to the referring clinician. 3 intraoperative C-arm images docum ent the procedure. See dictated report from anesthesia.
== END 2020-08-23 08:45 | disposition home or self-care (01) ==
LOC: ORPAIN 06:35
PROVIDERS: ATTEND Anesthesiology
DX: G89.29 Other chronic pain (principal); M47.816 Spondylosis without myelopathy or radiculopathy, lumbar region; M51.36 Other intervertebral disc degeneration, lumbar region; F17.200 Nicotine dependence, unspecified, uncomplicated; E07.9 Disorder of thyroid, unspecified; Z97.2 Presence of dental prosthetic device (complete) (partial); Z79.890 Hormone replacement therapy; Z79.1 Long term (current) use of non-steroidal anti-inflammatories (NSAID)
CPT/HCPCS: 81025

== ENCOUNTER → 2020-09-11 | Outpatient (CLI) | payer OTHER ==
[2020-09-11 08:08] VITALS: BP 123/91; PULSE 75; RESP 16; TEMP 97.6
--- NOTE | 2020-09-11 08:29 | P.PN ---
Subjective Progress Note Date: 09/11/20 This is follow-up visit for this 34 years old female with a chronic history of severe midback pain and low back pain she is diagnosed with thoracic spondylosis and lumbar spondylosis, lumbar degenerative disc disease, recently we did agnostic medial branch block lumbar area at L3, L4, L5, she reported that she get excellent pain relief after each block the pain was 8-10 over 10 before the first block dropped to 1-2 after the block, she gets similar results after the second diagnostic medial branch block, she reported that she had a few weeks of improvement of her low back pain but currently she is complaining of severe low back pain which is increased with any activity, she denies any motor or sensory deficit she denies any change in bowel movement or urination and that is no fever or night sweats, the pain mostly in the low back area and currently she has no radicular symptoms Objective - Vital Signs Vital signs: Vital Signs Temp 97.6 F 09/11/20 08:05 Pulse 75 09/11/20 08:05 Resp 16 09/11/20 08:05 BP 123/91 09/11/20 08:05 Pulse Ox 99 09/11/20 08:05 - Exam -Constitutiona : Cooperative , not in acute distress . -HEENT : nech : supple , no Lymphadenopathy , normal thyroid size . : eyes : no ptosis , no icterus, no photophobia . - neurologic : Cranial nerve II to XII intact , no focal neurological deffecit . -psychatric : alert , oriented X 3 , appropriate affect , intact judgment and insight . -Lymphatic : no Lymphadenopathy . - musculoskeltal : Lumber spine moter stegnth lower extremities ,thigh and legs 5/5 Right side , 5/5 Left side deep tendon reflexes : normal Knee Jerk , normal ankle Jerk lumber facet Loading Test =positive Right , positive Left Range of motion of the lumbar spine Flexion 60 degrees, extension 30 degrees strait leg raising test = negative bilaterally Fabere test= negative bilaterally. mild tenderness over the Sacroiliac joint on the Right , and Left sides MRI of the lumbar spine= L4 5 and L5-S1 facet degeneration and lumbar degenerative disc disease Assessment and Plan Plan: Assessment and plan=1-lumbar degenerative disc disease. 2-lumbar spondylosis with lumbar facet arthropathy without myelopathy. Patient had positive results after diagnostic medial branch block x2 ,pain improved significantly She will be good candidate to have radiofrequency thermocoagulation medial branch block lumbar area at L3 , L4 , L5 (to target the facet joint at L4-L5 and L5-S1) Time with Patient: Less than 30 PQRS Measure Charge Sheet Measure #130: Documentation of Current Meds in Medical Chart: Patient's medications documented in chart Measure #226: Tobacco Use: Screen & Cessation Intervention: Pt screened for tobacco use AND intervention given Measure #111: Pneumonia Vaccination: Pneumococcal vaccine NOT administered or previously given Measure #47: Advance Care Plan: Advance care planning discussed & documented, pt chose/unable to give Measure #412: Opioid Treatment Agreement: No documentation of signed opioid treatment agreement Measure #408: Opioid Therapy Follow-up Evaluation: Patient had NO f/u eval minimum every 3 months during opioid therapy Measure #317: Preventitive Care & Scrn High Bld Press & F/U: Normal blood pressure, f/u not required Measure #128: Body Mass Index (BMI) Screening & Follow-up: BMI documented ABOVE normal parameters - f/u documented Measure #131: Pain Assessment & Follow-up: Pain positive & plan documented, Follow-up scheduled Measure #431: Unhealthy Alcohol Use Preventative Care & Scrn: Patient not identified as an unhealthy alcohol user PQRS Narrative: Time with Patient: Less than 30
== END | disposition home or self-care (01) ==
LOC: PNWHC3 07:51
PROVIDERS: ATTEND Specialist
DX: M51.36 Other intervertebral disc degeneration, lumbar region (principal); M47.816 Spondylosis without myelopathy or radiculopathy, lumbar region
CPT/HCPCS: 99211

== ENCOUNTER → 2020-10-08 | Day surgery (SDC) | payer OTHER ==
[2020-10-01 15:06] VITALS: BMI 38.2
[~2020-10-08] MED LIST changes: +IV FLUID CONTINUATION 1,000 ML IV ONE; +LACTATED RINGERS 1,000 ML IV ONE; -LACTATED RINGERS 1,000 ML IV SCH; +MIDAZOLAM 2 MG/2 ML VIAL ONE; +ROPIVACAINE 5MG/ML 20ML VIAL ONE; +fentaNYL (PF) 50 MCG/ML 2 ML AMP ONE; +methylPREDNISolone ACETATE 40 MG/ML 1 ML VIAL ONE
[2020-10-08 07:20] VITALS: TEMP 96.7
[2020-10-08 08:44] VITALS: RESP 16
--- NOTE | 2020-10-08 08:48 | P.PCN ---
Date of Procedure: 10/08/20 Preoperative Diagnosis: Lumbar spondylosis without myelopathy Postoperative Diagnosis: Lumbar spondylosis without myelopathy Procedure(s) Performed: Bilateral lumbar L4-L5, and L5-S1 medial branch radiofrequency ablation Anesthesia: MAC Surgeon: Reynold Bruce Estimated Blood Loss (ml): 0 IV fluids (ml): 200 Urine output (ml): 0 Pathology: none sent Condition: stable Disposition: PACU Indications for Procedure: Patient had a history of chronic lumbar back pain, tried multiple interventional procedures with minimal pain relief. She had bilateral lumbar medial branch procedures helped for temporary good pain relief. So came here for radiofrequency ablation for longer pain relief. Description of Procedure: The patient was seen and identified in the preoperative area. Risks, benefits, complications, and alternatives were discussed with the patient. The patient agreed to proceed with the procedure and signed the consent. IV was started. Vital signs were stable. Patient was taken to the procedure room and timeout was completed. The patient was placed in the prone position on procedure table and a pillow was placed under the abdomen to reduce lumbar lordosis. The lumbosacral area was prepped and draped in the usual sterile fashion. Critical pause was taken. Vital signs were closely monitored during the procedure. The fluoroscopic camera was placed in the anteroposterior position to identify the junction of superior articular process and its corresponding injection with its right side transverse process of L4, L5, S1, which were anesthetized with 1% lidocaine. We used 20-gauge 100-mm curved, sharp radiofrequency cannula with 10- mm active tip for the procedure. The first cannula was guided by fluoroscopy to the S1 superior articular process and its corresponding junction with its ala. The second cannula was guided by fluoroscopy into the L5 superior articular process and its corresponding junction with its transverse process and pedicle. The third cannula was guided by fluoroscopy into the L4 SAP and its corresponding junction with its transverse process and its pedicle. After confirmation of needle tip position on oblique view, each site underwent motor testing at 2 Hz and 0 to 2.5 volts, and there was good motor stimulation in the back and no radicular symptoms or paresthesias. After confirmation of motor testing, each site was infiltrated with 0.5 mL at each level of block solution. Block solution contained 8 mL of 0.5% bupivacaine preservative free mixed with 40 MG of Kenalog. At this time, each site was ablated using continuous radiofrequency mode at 80 degrees Celsius for 90 seconds at each level. At the end of the procedure, each needle was retracted approximately 1 cm and the skin was infiltrated with 0.5% bupivacaine preservative free 1 ml at each site. Entire procedure repeated on the left side of the lumbar L4, L5, and S1 levels. At the end of the procedure , Skin was cleansed and bandages were applied. Disposition : The patient tolerated the procedure very well. The patient was transferred to the recovery room and remained stable until discharged home. The patient was given detailed discharge instructions for infection, bleeding, and increased pain at the injection site, and was advised to seek immediate medical attention should significant side effects develop. The patient will be scheduled with Pain Clinic within 4 weeks duration.
--- NOTE | 2020-10-08 08:49 | FL ---
EXAMINATION TYPE: FL guided pain mgmt statistic DATE OF EXAM: 10/08/2020 HISTORY: Fluoroscopy time 11 seconds of fluoroscopy provided. IMPRESSION: 1. Fluoroscopy time.
[2020-10-08 09:02] VITALS: BP 133/88; PULSE 73
== END | disposition home or self-care (01) ==
LOC: ORPAIN 06:49
DX: G89.29 Other chronic pain (principal); M47.816 Spondylosis without myelopathy or radiculopathy, lumbar region; Z98.51 Tubal ligation status
CPT/HCPCS: 81025; 64635; 64636; J2250; J1030; J3010; J2795; 99152; 99153

== ENCOUNTER → 2021-07-28 | Outpatient (CLI) | payer OTHER ==
[2021-07-28 07:41] VITALS: BP 137/91; RESP 18; TEMP 98.6
--- NOTE | 2021-07-28 08:26 | P.PAINPG ---
Subjective Progress Note Date: 07/28/21 Principal diagnosis: Lumbar back pain, and mid thoracic pain Ms. Cade is a 35 year old pleasant female patient came to [facility] pain clinic for follow-up visit. Patient pain started when she was in high school. She is actively doing physical therapy exercises at home. She tried multiple intervention procedures including lumbar epidural at L5-S1, bilateral lumbar L4-L5, and L5-S1 radiofrequency ablation, and thoracic T7-T8 epidural steroid injection. All of the intervention procedures help her a great pain relief, she stopped all her medications after the intervention procedures. But lately her pain is getting worse in her lumbar area, and thoracic area. Sometimes patient is experiencing lumbar back pain radiating to her right lower extremity causing numbness and tingling sensation. Patient described pain as aching, sharp, throbbing, type of pain. Patient rated pain 6out of 10 in severity. Which may very her pain level from 3-8out of 10 in severity. Pain increases with activities, and standing, walking, sitting, bending forward, and lifting. Pain decreases with medications , interventional procedures . Overall patient activities decreased secondary to pain. She still actively working at [employer]. Pain medications Flexeril helping to some extent. Because of the pain patient is feeling lack of sleep and interest and energy. Denied any bowel or bladder problems. Patient denies any adverse effects to medications. Not using any walking aids for walking. Complaining depression secondary to pain but denied any suicidal/homicidal tendency at this time. There are no signs of narcotic diversion/misuse/overuse and no new-onset weakness, bowel/bladder incontinence, saddle anesthesia, or no red flag symptoms. Objective - Vital Signs Vital signs: Vital Signs Temp 98.6 F 07/28/21 07:40 Pulse Resp 18 07/28/21 07:40 BP 137/91 07/28/21 07:40 Pulse Ox 94 L 07/28/21 07:40 - Exam General: Well-developed, well-nourished, no acute distress HEENT: Normocephalic, and atraumatic Neck: Supple, no neck swelling Psychiatric: Appropriate mood, and affect COMMUNICATION PROFESSOR: No focal neurological deficits Musculoskeletal: Upper extremity: Normal strength, and range of motion. Sensation grossly intact Lower extremity: Normal strength, and range of motion. Sensation grossly intact Lumbar spine: Paravertebral tenderness: positive Lumbar facet load test : positive Sacroiliac joint tenderness: Negative Thoracic spine and, paraspinal muscle tenderness positive Multiple trigger points positive over lumbar, and thoracic area - Constitutional Constitutional Comment(s): 12 point review of symptoms negative except as mentioned in the history of present illness Assessment and Plan Assessment: Lumbar spondylosis without myelopathy Lumbar degenerative disc disease with lumbar radiculopathy Thoracic spondylosis without myelopathy Myofascial pain syndrome, and chronic pain syndrome Plan: #1 Opioid, and psychological risk tools, and scores were reviewed. Diagnoses, prognosis, and multiple treatment options including but not limited to physical therapy, interventional therapy, adjunct medication therapy, narcotic medication, and surgical options were discussed with the patient. And all questions were answered to the patient's satisfaction. #2 treatment plan agreement : Patient was thoroughly discussed regarding the treatment options, alternatives, and importance of exercises as tolerated. Patient clearly understood. #3 Patient was counseled on importance of regular exercise. Including mika chi, aerobic exercises as tolerated. Which helps for chronic pain, and overall well- being. Patient also counseled regarding importance of weight control rolling chronic pain, and overall other health issues. By altering diet habits, minimizing sugar intake, and processed foods helps in minimizing Inflammation. Also discussed with the patient regarding intermittent fasting. Patient counseled importance of quitting smoking, and discussed with the patient how smoking influences the inflammation, and worsening pain. #4 investigations: MAPS- reviewed , urine drug test- not done #5 diagnostic tests: Patient is scheduled for lumbar spine MRI without contrast on August 13, 2021 #6 consultation : None # 7 interventional procedures: Thoracic T7-T8 epidural steroid injection. Procedure, complications, alternatives discussed with the patient. #8 medications #1 magnesium oxide 400 mg by mouth daily #2 patient recommended to get gabapentin 300 mg by mouth every 12 hours from her primary care physician Medication side effects, complications, long-term consequences discussed with the patient. Patient recommended to contact the pain clinic if noticed any issues with given medications. #9 morphine milligrams equivalents dose ( MME) per day: 0. # 10 patient is using TENS unit's, and recommended to get percussion massage device #11 disposition: scheduled to follow up with pain clinic in 4 weeks duration. Time with Patient: Less than 30 PQRS Measure Charge Sheet Measure #226: Tobacco Use: Screen & Cessation Intervention: Pt screened for tobacco use AND intervention given Measure #111: Pneumonia Vaccination: Pneumococcal vaccine NOT administered or previously given Measure #47: Advance Care Plan: Advance care planning discussed & documented, pt chose/unable to give Measure #412: Opioid Treatment Agreement: No documentation of signed opioid treatment agreement Measure #408: Opioid Therapy Follow-up Evaluation: Patient had NO f/u eval minimum every 3 months during opioid therapy Measure #317: Preventitive Care & Scrn High Bld Press & F/U: Normal blood pre ssure, f/u not required Measure #128: Body Mass Index (BMI) Screening & Follow-up: BMI documented ABOVE normal parameters - f/u documented Measure #131: Pain Assessment & Follow-up: Pain positive & plan documented Measure #431: Unhealthy Alcohol Use Preventative Care & Scrn: Patient not identified as an unhealthy alcohol user Mode of Arrival: Ambulatory - Pain Location Lower Back Non-Pharmacological Interventions: Heat Pharmacological Interventions: Medication, PRN Medication PQRS Narrative: Smoking Status Current every day smoker Blood Pressure 137/91 Pain Intensity [Lower Back] 5 Scale Used Numeric (1 - 10) Hx Alcohol Use (MH) Yes: occasional Home Medications: Ambulatory Orders Celecoxib [CeleBREX] 100 mg PO BID 03/20/20 Levothyroxine Sodium [Synthroid] 150 mcg PO QAM 03/20/20 busPIRone HCl [Buspar] 10 mg PO TID 03/20/20 Ibuprofen 400 mg PO Q6H PRN 05/17/20 Citalopram Hydrobromide [CeleXA] 20 mg PO DAILY 07/24/21 Cyclobenzaprine [Flexeril] 10 mg PO TID 07/24/21 Controlled Substance Measures - Controlled Substance Measures Is patient prescribed a controlled substance at discharge?: No
== END ==
LOC: PNWHC3 07:31
DX: M47.26 Other spondylosis with radiculopathy, lumbar region (principal); M51.16 Intervertebral disc disorders with radiculopathy, lumbar region; M47.814 Spondylosis without myelopathy or radiculopathy, thoracic region; M79.18 Myalgia, other site; G89.4 Chronic pain syndrome; F17.200 Nicotine dependence, unspecified, uncomplicated; Z88.5 Allergy status to narcotic agent
CPT/HCPCS: 99211

== ENCOUNTER 2021-08-26 05:57 | Day surgery (SDC) | payer OTHER ==
[2021-08-22 10:20] VITALS: BMI 38.2
[~2021-08-26 05:57] MED LIST changes: -IV FLUID CONTINUATION 1,000 ML IV ONE; -LACTATED RINGERS 1,000 ML IV ONE; +LACTATED RINGERS 1,000 ML IV SCH; -MIDAZOLAM 2 MG/2 ML VIAL ONE; -ROPIVACAINE 5MG/ML 20ML VIAL ONE; -fentaNYL (PF) 50 MCG/ML 2 ML AMP ONE; -methylPREDNISolone ACETATE 40 MG/ML 1 ML VIAL ONE
[2021-08-26 06:35] VITALS: RESP 18; TEMP 97.7
[2021-08-26] MEDS ORDERED: LACTATED RINGERS 1,000 ML IV ONE (06:35)
[2021-08-26] MEDS ORDERED: LIDOCAINE 1% (10MG/ML) FOR IV START INTRADERMA ONE (06:44)
[2021-08-26] MEDS ORDERED: ROPIVACAINE 5MG/ML 20ML VIAL ONE (07:03)
[2021-08-26] MEDS ORDERED: MIDAZOLAM 2 MG/2 ML VIAL ONE (07:03)
[2021-08-26] MEDS ORDERED: TRIAMCINOLONE ACETONIDE 40 MG/ML 1 ML VIAL ONE (07:03)
[2021-08-26] MEDS ORDERED: fentaNYL (PF) 50 MCG/ML 2 ML AMP ONE (07:03)
[2021-08-26] MEDS ORDERED: IOPAMIDOL M200 10 ML VIAL ONE (07:03)
--- NOTE | 2021-08-26 07:23 | P.PCN ---
Date of Procedure: 08/26/21 Preoperative Diagnosis: Thoracic DDD, thoracic spondylosis without myelopathy Postoperative Diagnosis: Same as above Procedure(s) Performed: Thoracic epidural steroid injection under fluoroscopic guidance at the T7-T8 level in the right paramedian approach Anesthesia: MAC (Moderate IV conscious sedation with 2 mg of Versed and 100 g of fentanyl) Surgeon: Jacob Buckley Pathology: none sent Condition: stable Disposition: PACU Description of Procedure: The patient was seen in the preop holding area consent was obtained patient was brought into the procedure room and placed in prone position. Skin was prepped with ChloraPrep and draped in a sterile manner. Lidocaine 1% was used to numb the skin up at the target area one level below the T7-T8 epidural space I then used a 20-gauge 3-1/2 inch Touhy epidural needle to get axis into the epidural space at the T7-T8 level in the right paramedian approach. There was positive [id number] to air negative aspiration for any CSF or blood and negative paresthesia I then injected 1 mL of Isovue which showed typical spread in the AP and lateral view of fluoroscopy and the epidural space. After that I injected 40 mg of Kenalog was 2 MLS of ropivacaine 0.5% +4 MLS of posterior free normal saline to a total volume of 7 MLS in epidural space. Patient tolerated procedure well. Needle was withdrawn and then a Band-Aid was placed at the skin entry site. A copy of needle placement was saved in the C-arm in the radiology department.
[2021-08-26] MEDS ORDERED: IV FLUID CONTINUATION 1,000 ML IV ONE (07:24)
[2021-08-26 07:41] VITALS: BP 136/88; PULSE 87
--- NOTE | 2021-08-26 08:54 | FL ---
Fluoroscopy HISTORY: Pain 17 seconds fluoroscopy time supplied to the referring clinician. 2 intraoperative C-arm images docum ent the procedure. See dictated report from anesthesia.
== END 2021-08-26 07:58 | disposition home or self-care (01) ==
LOC: ORPAIN 05:57
PROVIDERS: ATTEND Anesthesiology
DX: M51.34 Other intervertebral disc degeneration, thoracic region (principal); M47.814 Spondylosis without myelopathy or radiculopathy, thoracic region
CPT/HCPCS: 81025; 62321; J2250; J3301; J3010; Q9966; J2795; 99152

== ENCOUNTER → 2021-10-06 | Outpatient (CLI) | payer OTHER ==
--- NOTE | 2021-10-07 01:04 | MR ---
EXAMINATION TYPE: MR lumbar spine wo/w con DATE OF EXAM: 10/06/2021 COMPARISON: 04/15/2020 HISTORY: LBP, BLE numbness x 3 mos, no trauma. CONTRAST: Standard multiplanar, multisequence MRI departmental protocol images were obtained without contrast a nd with 10 mL intravenous Gadavist gadolinium contrast. Lumbar vertebrae have normal alignment. There is some decreased signal in the disks at L4-5 and L5-S1 . There is posterior mild disc herniation at L5-S1. There is developmentally adequate spinal canal. N o spinal stenosis. There is no lumbar paraspinal mass. There is no evidence of focal bone destruction . The lumbar neural foramina are fairly well maintained. IMPRESSION: There is a mild posterior lumbar disc herniation in the midline at L5-S1 without change compared to t he old exam. No spinal stenosis.
== END | disposition home or self-care (01) ==
LOC: RADMRIMAIN 20:42
PROVIDERS: ATTEND Family Medicine
DX: M51.27 Other intervertebral disc displacement, lumbosacral region (principal)
CPT/HCPCS: 72158; A9585

== ENCOUNTER → 2021-11-05 | Outpatient (CLI) | payer OTHER ==
[2021-11-05 09:12] VITALS: BP 112/73; PULSE 92; RESP 18; TEMP 98.6
--- NOTE | 2021-11-05 09:19 | P.PN ---
Subjective Progress Note Date: 11/05/21 Principal diagnosis: A 36 yr old female with a history of severe and chronic low back pain secondary to lumbar degenerative disc diseases and lumbar spondylosis with facet arthropathy presents today for evaluation. Pt states she underwent a T7-T8 TESI and has experienced 95% pain relief. Pain level is currently at 1/10 in intensity, but is provoked with standing bending twisting or lifting. It is dull/ achy in character but also sharp/ shooting towards the hips bilaterally. Pain is alleviated with medications and injections heat home exercise stretching and use of TENS unit. Interventional pain procedures completed include T7-T8 TESI and a bilateral lumbar RFA of L4-L5, L5-S1 Patient is currently on Gabapentin 100mb TID and Celebrex Patient denies any side effects of the medication(s), denies excessive drowsiness or sleepiness, denies suicidal ideation and reports that the current pain medication is helping to control the pain and improve activities of daily living. Patient denies any motor or sensory deficits. Patient denies any fever or night sweats, denies any change in the bowel movements or urination. Physical Examination: -Constitutional: Cooperative. Not in acute distress . -HEENT: Neck is supple. No lymphadenopathy. No thyromegaly. Normal thyroid size. Eyes: No ptosis , no icterus, no photophobia. ENT: No auditory deficits. Normal oropharynx. No Thrush. - Respiratory: Chest clear to auscultations bilaterally. No wheezing. No rhonchi. - Cardiovascular: Regular rate and rhythm. S1 / S2 , no S3 , no S4. - Gastrointestinal: Abdomen soft no tenderness. Bowel sounds positive in all four quadrants. No organomegaly. - Genitourinary: Deferred. - Neurologic: Cranial nerve II to XII intact. No focal neurological deficits. - Psychatric: Alert & oriented x 3. Matching mood & appropriate affect. Judgment and insight intact. - Lymphatic: No Lymphadenopathy. - Musculoskeletal: Cervical spine: Muscle bulk/ tone/ strength in the bilateral upper extremities normal. Facet loading test cervical area positive. Thoracic spine: Muscle bulk/ tone/ strength 5 /5 No pain noted with palpation over vertebral bodies Lumbar spine: Motor bulk/ tone/ strength lower extremities , thigh and legs : 5/5 Deep tendon reflexes : Normal Knee Jerk. Normal Ankle Jerk . Lumbar Facet Loading Test positive over bilateral L4-S1 Straight Leg Raise: positive at 30 degree right side/ left side Adrián test: positive right side / left side Range of motion: Flexion of the lumbar spine <60 degrees Range of motion: Extension of the lumbar spine <20 degrees Severe tenderness over the Sacroiliac joint: right side / left side Assessment and plan: Chronic low back pain secondary to lumbar degenerative disc disease , lumbar spondylosis with facet arthropathy without myelopathy Recommendation of bilateral RSA of L4-L5, L5-S1 Risk benefits of procedure discussed and patient verbalized understanding Discontinue use of Celebrex 3 days prior to procedure Chronic and current use of high-risk medication (Opioids). The patient was counseled about risk of opioid use, psychological risk associated with opioids and was orally counseled to not overuse , divert or sell medications. Pt is to store medication in a safe location. The patient is counseled against driving while using narcotic medications and also not to use alcohol or any illicit recreational drugs. Patient verbalized understanding that the lack of compliance will result in failure to renew narcotic prescription(s) as well as possible discharge from the clinic Diagnoses, prognosis and treatment options including but not limited to physical therapy, surgical interventions, interventional therapies and medication management including narcotics and adjuvant medication were discussed. All patient questions answered MAPS reviewed and it was appropriate. I have spent 31 minutes on patient care today. Dr Rosales was available by phone for the evaluation of this patient. The time was used to review the [facility] records including relevant urine studies and Prescription history (MAPs), review of the available imaging, evaluation and examination of the patient, coordination of care with the medical staff and if applicable referring physicians, as well as creation of the medical record Objective - Vital Signs Vital signs: Vital Signs Temp 98.6 F 11/05/21 09:05 Pulse 92 11/05/21 09:05 Resp 18 11/05/21 09:05 BP 112/73 11/05/21 09:05 Pulse Ox 97 11/05/21 09:05 PQRS Measure Charge Sheet Mode of Arrival: Ambulatory - Pain Location Lower Back Non-Pharmacological Interventions: TENS Unit Pharmacological Interventions: Block, Epidural, Medication, PRN Medication PQRS Narrative: Smoking Status Current every day smoker Blood Pressure 112/73 Pain Intensity [Lower Back] 9 Scale Used Numeric (1 - 10) Hx Alcohol Use (MH) Yes: occasional Home Medications: Ambulatory Orders Celecoxib [CeleBREX] 100 mg PO BID 06/17/20 Levothyroxine Sodium [Synthroid] 150 mcg PO QAM 03/20/20 busPIRone HCl [Buspar] 15 mg PO BID 03/20/20 Ibuprofen 400 mg PO Q6H PRN 05/17/20 Citalopram Hydrobromide [CeleXA] 20 mg PO DAILY 07/24/21 hydrOXYzine HCL [Atarax] 50 mg PO TID PRN 08/22/21 Gabapentin [Neurontin] 100 mg PO TID 10/01/21
== END ==
LOC: PNWHC3 08:27
PROVIDERS: ATTEND Physician Assistant Medical
DX: G89.29 Other chronic pain (principal); M51.36 Other intervertebral disc degeneration, lumbar region; M47.816 Spondylosis without myelopathy or radiculopathy, lumbar region; F17.200 Nicotine dependence, unspecified, uncomplicated; Z79.891 Long term (current) use of opiate analgesic; Z88.5 Allergy status to narcotic agent
CPT/HCPCS: 99211

== ENCOUNTER 2021-12-12 11:47 | Day surgery (SDC) | payer OTHER ==
[2021-12-12 12:10] VITALS: TEMP 97.1
[2021-12-12] MEDS ORDERED: LIDOCAINE 1% (10MG/ML) FOR IV START SQ ONE (12:14)
[2021-12-12] MEDS ORDERED: LACTATED RINGERS 1,000 ML IV ONE (12:14)
[2021-12-12] MEDS ORDERED: methylPREDNISolone ACETATE 40 MG/ML 1 ML VIAL ONE (13:47)
[2021-12-12] MEDS ORDERED: MIDAZOLAM 2 MG/2 ML VIAL ONE (13:47)
[2021-12-12] MEDS ORDERED: fentaNYL (PF) 50 MCG/ML 2 ML AMP ONE (13:47)
[2021-12-12] MEDS ORDERED: ROPIVACAINE 5MG/ML 20ML VIAL ONE (13:47)
--- NOTE | 2021-12-12 14:20 | P.PCN ---
Date of Procedure: 12/12/21 Procedure(s) Performed: PREOPERATIVE DIAGNOSIS: 1-Lumbar Spondylosis with Facet Arthropathy without myelopathy. 2- Lumber degenerative disc disease. POSTOPERATIVE DIAGNOSIS: 1- Lumbar Spondylosis with Facet Arthropathy without myelopathy. 2- Lumber degenerative disc disease. PROCEDURES : Bilateral Radiofrequency thermocoagulation, L3 , L4 , and L5 medial branch, with fluoroscopic guidance (fluoroscopy images available in the radiology department) ( to denervate the facet joint at bilateral L4-5 ,and L5-S1 levels ). ANESTHESIA: Monitored anesthesia care as per anesthesia department . EBL: Minimal PROCEDURE INDICATION: The patient with low back pain secondary to lumbar facet arthropathy who had more than 50% relief of her pain with previous diagnostic lumbar medial branch block with bupivacaine. PROCEDURE DESCRIPTION / TECHNIQUE: The patient was seen and identified in the preoperative area. Risks, benefits, complications, including but not limited to risk of infection ,bleeding , allergic reactions to the medications and no complete pain releife , and alternatives were discussed with the patient, the patient agreed to proceed with the procedure and signed the consent. IV was started. Vital signs remained stable throughout the procedure. Patient was taken to the OR and time out was completed. The patient was placed in the prone position on the procedure table. The lumber area was prepped and draped in the usual sterile fashion. . Vital signs were closely monitored during the procedure .IV sedation was used during the procedure to decrease patients anxiety. Using AP and then oblique fluoroscopy, the ``eye of the Pan dog cor responding to the connection between the superior and transverse articular processes of right L3, L4, and L5 were identified, marked, and localized with 1% lidocaine. Subsequently, a [id number] radiofrequency cannula with a 10- mm active tip was advanced guided by fluoroscopy to each of the``eyes of the Pan dog at right L3, L4, and L5. Each site then underwent sensory testing at 50 Hz and 0 to 1 volt and motor testing at 2.5 Hz and 0 to 3 volt with local stimulation, but no radicular symptoms down the legs. Thereafter each sites underwent radiofrequency thermocoagulation at 80 degrees celsius for 90 seconds after injecting 0.5 ml of PF Ropivacaine 1ml, then after the thermocoagulation done , 1 ml of the block solution containing Depo-Medrol 20 mg and 3 ml of Ropivacaine 0.5% was injected at the right L3 , L4 , and L5 , levels after negative aspiration of CSF and blood and with no paresthesias. Cannulas were retracted while injecting lidocaine 1% until the needle is out. The same procedure was repeated at the level of Left L3, L4, and L5 levels. At the end of the procedure, the skin was cleansed and bandages were applied. COMPLICATIONS: No acute complications. DISPOSITION / PLANS: The patient was placed in a supine position and transferred to the recovery area in a stable condition for observation and was discharged from the recovery room after meeting discharge criteria. Home discharge instructions given to the patient by the staff. The patient was reexamined prior to discharge. The patient will schedule a follow up in the clinic in 2-4 weeks.
[2021-12-12] MEDS ORDERED: IV FLUID CONTINUATION 600 ML IV ONE (14:23)
[2021-12-12] MEDS ORDERED: LIDOCAINE 1% (10MG/ML) FOR IV START INTRADERMA PRN (14:25)
[2021-12-12] MEDS ORDERED: LACTATED RINGERS 1,000 ML IV SCH (14:25)
[2021-12-12 14:33] VITALS: RESP 16
[2021-12-12 14:43] VITALS: BP 122/76; PULSE 85
--- NOTE | 2021-12-12 15:41 | FL ---
Fluoroscopy HISTORY: Pain 33 seconds fluoroscopy time supplied to the referring clinician. 7 intraoperative C-arm images docum ent the procedure. See dictated report from anesthesia.
== END 2021-12-12 14:58 | disposition home or self-care (01) ==
LOC: ORPAIN 11:47
PROVIDERS: ATTEND Specialist
DX: M47.816 Spondylosis without myelopathy or radiculopathy, lumbar region (principal); M51.36 Other intervertebral disc degeneration, lumbar region
CPT/HCPCS: 64635; 64636; 81025; J2250; J1030; J3010; J2795

== ENCOUNTER → 2022-04-01 | Outpatient (CLI) | payer OTHER ==
[2022-04-01 08:26] VITALS: BP 137/63; PULSE 92; RESP 18
--- NOTE | 2022-04-13 10:26 | P.PAINPG ---
PQRS Measure Charge Sheet Comment: A 36 yr old female with a history of severe and chronic low back pain secondary to lumbar degenerative disc diseases and lumbar spondylosis with facet arthropathy presents today for evaluation s/p BL RFA L3-L5 and complaints of mid back pain. Pt experienced 80% pain relief s/p procedure. Pain level is curr ently at 8/10 in intensity in the lower back w radiation to BL flanks, constant, throbbing/achy/sore in character. Pain is provoked by twisting & hyperextension. Pain is alleviated with PT in the past, massage in the past, heat, medications (Celebrex), TENS unit use . Interventional pain procedures completed include BL RFA L3-L5. T7-T8 TESI. Patient is currently on Celebrex Patient denies any side effects of the medication(s), denies excessive drowsiness or sleepiness, denies suicidal ideation and reports that the current pain medication is helping to control the pain and improve activities of daily living. Patient denies any motor or sensory deficits. Patient denies any fever or night sweats, denies any change in the bowel movements or urination. Physical Examination: -Constitutional: Cooperative. Not in acute distress . - Neurologic: Cranial nerve II to XII intact. No focal neurological deficits. - Psychatric: Alert & oriented x 3. Matching mood & appropriate affect. Judgment and insight intact. - Musculoskeletal: Cervical spine: Muscle bulk/ tone/ strength in the bilateral upper extremities normal Vertebral body tenderness to palpation over Spurling test positive Distraction test positive Facet loading test positive Thoracic spine Muscle bulk / tone/ strength in the bilateral paraspinal muscles normal Vertebral body tender to palpation Facet loading test positive Lumbar spine: Motor bulk/ tone/ strength lower extremities , thigh and legs : 5/5 Deep tendon reflexes : Normal Knee Jerk. Normal Ankle Jerk . Vertebral body tenderness to palpation over L2, L3 w paraspinal muscle spasms and TTP Lumbar Facet Loading Test positive Straight Leg Raise: positive at 30 degrees right side/ left side Gaenslen's Test positive Sacral spine : Severe tenderness over the Sacroiliac joint: right side / left side Range of motion: Flexion of the lumbar spine <60 degrees Range of motion: Extension of the lumbar spine <20 degrees Gaenslen's Test positive Tello's Test positive Adrián test: positive right side / left side Thigh Thrust Test Sacral Thrust Test Assessment and plan: Chronic mid to low back pain secondary to lumbar degenerative disc disease , lumbar spondylosis with facet arthropathy without myelopathy Recommendation of LESI L2-L3. Risks, benefits of procedure discussed and pt verbalized understanding. Denies anticoagulant use or medical history of diabetes. All patient questions answered MAPS reviewed and it was appropriate. I have spent less than 30 minutes on patient care today. Dr Rosales was available by phone for the evaluation of this patient. The time was used to review the medical records including relevant urine studies and Prescription history (MAPs), review of the available imaging, evaluation and examination of the patient, coordination of care with the medical staff and if applicable referring physicians, as well as creation of the medical record - Pain Location Back Non-Pharmacological Interventions: Heat, Home Exercise, Inactivity, Physical Therapy, Stretching, TENS Unit Pharmacological Interventions: Block, Epidural, Scheduled Medication PQRS Narrative: Smoking Status Current every day smoker Hx Alcohol Use (MH) Yes: occasional Home Medications: Ambulatory Orders Celecoxib [CeleBREX] 100 mg PO BID 03/20/20 Levothyroxine Sodium [Synthroid] 150 mcg PO QAM 03/20/20 busPIRone HCl [Buspar] 15 mg PO BID 03/20/20 Ibuprofen 400 mg PO Q6H PRN 05/17/20 Citalopram Hydrobromide [CeleXA] 20 mg PO DAILY 07/24/21 hydrOXYzine HCL [Atarax] 50 mg PO TID PRN 08/22/21 Gabapentin [Neurontin] 100 mg PO TID 10/01/21 Controlled Substance Measures - Controlled Substance Measures Is patient prescribed a controlled substance at discharge?: No
== END ==
LOC: PNWHC3 07:41
PROVIDERS: ATTEND Specialist
DX: M51.36 Other intervertebral disc degeneration, lumbar region (principal); G89.29 Other chronic pain; M47.816 Spondylosis without myelopathy or radiculopathy, lumbar region; F17.200 Nicotine dependence, unspecified, uncomplicated; Z88.5 Allergy status to narcotic agent
CPT/HCPCS: 99211

== ENCOUNTER → 2022-04-10 | Outpatient (CLI) | payer OTHER ==
--- NOTE | 2022-04-11 07:00 | MR ---
MRI CERVICAL SPINE: CLINICAL HISTORY: Neck pain. Paresthesia scan. TECHNIQUE: Multiplanar, multisequence imaging of the cervical spine is performed without IV contrast. COMPARISON: None. FINDINGS: Sagittal images of the cervical spine show the craniocervical junction to appear within nor mal limits. The cervical and upper thoracic spinal cord is normal in course, caliber, and signal. Sl ight grade 1 retrolisthesis of C6 on C7. The vertebral body and intravertebral disk heights are norm al. The bone marrow signal intensity is within normal limits. Axial images show C2-C3 and C3-C4 levels to appear within normal limits. Axial images at C4-C5 levels with tiny central disc protrusion mildly effacing the anterior thecal sa c, patent bilateral neural foramina. Axial images at C5-C6 level shows central disc protrusion mildly effacing the anterior thecal sac, pa tent bilateral neural foramina. Axial images at C6-C7 level show tiny central disc protrusion mildly effaces the anterior thecal sac, patent bilateral neural foramina. Subtle spondylolisthesis. Axial images at C7-T1 levels appear within normal limits. IMPRESSION: Mild multilevel degenerative changes mid to lower cervical spine as detailed above..
== END | disposition home or self-care (01) ==
LOC: RADMRIMAIN 18:13
PROVIDERS: ATTEND Psychiatry & Neurology Neurology
DX: M47.21 Other spondylosis with radiculopathy, occipito-atlanto-axial region (principal); M50.323 Other cervical disc degeneration at C6-C7 level
CPT/HCPCS: 72141

== ENCOUNTER 2022-05-05 06:59 | Day surgery (SDC) | payer OTHER ==
[2022-05-01 14:25] VITALS: BMI 39.9
[~2022-05-05 06:59] MED LIST changes: +LIDOCAINE 1% (10MG/ML) FOR IV START INTRADERMA PRN
[2022-05-05 07:40] VITALS: RESP 16; TEMP 97
[2022-05-05] MEDS ORDERED: fentaNYL (PF) 50 MCG/ML 2 ML AMP ONE (08:11)
[2022-05-05] MEDS ORDERED: MIDAZOLAM 2 MG/2 ML VIAL ONE (08:11)
[2022-05-05 08:26] LABS: ALT 27 U/L (4-34); AST 23 U/L (14-36)
[2022-05-05] MEDS ORDERED: IV FLUID CONTINUATION 750 ML IV ONE (08:26)
--- NOTE | 2022-05-05 08:26 | P.PCN ---
Date of Procedure: 05/05/22 Procedure(s) Performed: Preoperative diagnosis: Demyelinating disease Post operative diagnoses: Demyelinating disease Procedure= lumbar puncture Anesthesia= moderate sedation with Versed 2 mg , and fentanyl 100 g, local infiltration with lidocaine 1% 2 mL. Sedation start time : 08:14 Sedation end time : 08:21 Condition: stable Complication: none. Description of the procedure procedure risk and benefits discussed with the patient and family, consent signed. Patient and the procedure area placed in sitting position, all standard monitors applied and sedation was given to decrease patient's and anxiety back prepped with chlorhexidine 3 times been local infiltration of the skin and subcutaneous tissue with lidocaine 1% 2 mL for skin and subcu interstitial frustrations at L4 5 levels then 22-gauge Quincke-type needle advanced slowly at L4- 5 interlaminar space there was positive cerebrospinal fluid which was clear, no heme, no paresthesia ,total of 8 ML of clear cerebrospinal fluid collected in 4 different tubes 2 mL in each, then the needle removed and a Band-Aid applied and patient tolerated the procedure well without any complications.
[2022-05-05 08:37] LABS: T4, Free (Free Thyroxine) 0.92 ng/dL (0.78-2.19)
[2022-05-05 08:45] VITALS: BP 129/85; PULSE 89
[2022-05-05 12:20] LABS: Glucose,CSF 63 mg/dL (40-70); Total Protein,CSF 39 mg/dL (12-60)
[2022-05-05 14:49] LABS: Rheumatoid Factor, Qnt <10 IU/mL (0-15)
[2022-05-05 15:08] LABS: Anti-Smith Ab Interp NEGATIVE (NEGATIVE); DNA Double-Stranded NEGATIVE (NEGATIVE)
[2022-05-05 17:29] LABS: Appearance,CSF Clear; CSF Tube Number 4; CSF Tube Volume 2; Nucleated Cells, CSF 0 u/L (0-5); Red Blood Cell,CSF 0 u/L (0-10)
[2022-05-07 14:03] LABS: Lyme IgG/IgM 0.08 Index
[2022-05-08 11:27] LABS: VDRL, Qualitative CSF Nonreactive (Nonreactive)
== END 2022-05-05 09:00 | disposition home or self-care (01) ==
LOC: ORPAIN 06:59
PROVIDERS: ATTEND Specialist
DX: G37.9 Demyelinating disease of central nervous system, unspecified (principal); Z88.5 Allergy status to narcotic agent; Z79.899 Other long term (current) drug therapy; Z79.890 Hormone replacement therapy; F17.200 Nicotine dependence, unspecified, uncomplicated
CPT/HCPCS: 81025; 86592; 86235 ×3; 84439; 84157; 82945; 82040; 82042; 82784; 83916; 83873; 84443; 84450; 84460; 86431; 89050; 86618; 86780; 86038; 86225; 87801; 62270; J2250; J3010; 88108

== ENCOUNTER 2022-05-06 08:32 | Emergency (ER) | payer OTHER ==
[2022-05-06 08:53] VITALS: TEMP 98.2
[2022-05-06] MEDS ORDERED: KETOROLAC 15 MG/ML 1 ML VIAL IVP STA (09:14)
[2022-05-06] MEDS ORDERED: PROCHLORPERAZINE INJ 10 MG/2 ML VIAL IVP STA (09:14)
[2022-05-06] MEDS ORDERED: SODIUM CHLORIDE 0.9% 1,000 ML IV STA (09:14)
[2022-05-06] MEDS ORDERED: diphenhydrAMINE 50 MG/ML 1 ML VIAL IVP STA (09:14)
[2022-05-06] MEDS ORDERED: CAFFEINE-SODIUM BENZOATE 500 MG in SODIUM CHLORIDE 0.9% 1,000 ML IVPB ONE (09:30)
--- NOTE | 2022-05-06 09:45 | ED ---
General Adult HPI - General Chief complaint: Headache Stated complaint: Headache,Had spinal tap yesterday Time Seen by Provider: 05/06/22 08:56 Source: patient, RN notes reviewed, old records reviewed Mode of arrival: ambulatory Limitations: no limitations - History of Present Illness Initial comments: Patient is a 36-year-old female with past medical history remarkable for thyroid disorder, migraines, osteoarthritis who is currently being worked up for MS a spinal tap done yesterday. States that she went home and was feeling okay, however began having a headache last night. It did improve when laying down. However became worse this morning and she had some headaches when laying down. Presents for further evaluation at this time. Nurses mild nausea but no vomiting. Denies visual changes. Describes a headache as located over her forehead, and throbbing in nature. Denies any sensory or strength deficits. Denies any back or neck pain. Denies any fevers or chills. Has no other acute complaints at this time. Did call the pain clinic where this was performed by anesthesia, and they recommended she present for a blood patch. - Related Data Home Medications Medication Instructions Recorded Confirmed Celecoxib [CeleBREX] 100 mg PO BID 03/20/20 05/05/22 Levothyroxine Sodium [Synthroid] 150 mcg PO QAM 03/20/20 05/01/22 busPIRone HCl [Buspar] 15 mg PO BID 03/20/20 05/01/22 Ibuprofen 400 mg PO Q6H PRN 05/17/20 05/05/22 hydrOXYzine HCL [Atarax] 50 mg PO TID PRN 08/22/21 05/01/22 Gabapentin [Neurontin] 200 mg PO TID 10/01/21 05/01/22 buPROPion SR [Wellbutrin SR] 150 mg PO BID 05/01/22 05/01/22 Previous Rx's Medication Instructions Recorded Butalb/Acetaminophen/Caffeine 1 cap PO Q6H PRN 3 Days #12 cap 05/06/22 [Fioricet 50-300-40 mg Capsule] Allergies Allergy/AdvReac Type Severity Reaction Status Date / Time codeine AdvReac Itching Verified 05/06/22 08:53 Review of Systems ROS Statement: Those systems with pertinent positive or pertinent negative responses have been documented in the HPI. Review of Systems: CONST: Denies fever EYES: Denies blurry vision ENT: Denies nasal congestion C/V: Denies Chest pain RESP: Denies shortness of breath GI: Denies abdominal pain : Denies dysuria SKIN: Denies rash. MSK: Denies joint pain. NEURO: Endorses headache ROS Other: All systems not noted in ROS Statement are negative. Past Medical History Past Medical History: Osteoarthritis (OA), Skin Disorder, Thyroid Disorder Additional Past Medical History / Comment(s): Migraines, bulging discs in neck, deteriorating discs in back, Vitiligo. History of Any Multi-Drug Resistant Organisms: None Reported Past Surgical History: Section, Tubal Ligation, Uterine Ablation Additional Past Surgical History / Comment(s): Surgery for incomplete cleft lip, sinus surgery.,PAIN CLINIC PROCEDURES Past Anesthesia/Blood Transfusion Reactions: No Reported Reaction Past Psychological History: Anxiety Smoking Status: Current every day smoker Past Alcohol Use History: None Reported Past Drug Use History: None Reported - Past Family History Mother Family Medical History: No Reported History General Exam - General Exam Comments Initial Comments: General: Appears in mild distress secondary to headache. HEAD: Normal with no signs of head trauma. EYES: PERRLA, EOMI, conjunctiva normal, no discharge. Pupils 3 mm and equal bilaterally. ENT: Hearing grossly intact, normal oropharynx. RESPIRATORY: Clear breath sounds bilaterally. No wheezes, rales, or rhonchi. C/V: Regular rate and rhythm. S1 and S2 auscultated. Peripheral pulses 2+ and intact throughout. ABD: Abd is soft, nontender, nondistended EXT: Normal range of motion, no obvious deformity SKIN: No rashes or lesions observed on exposed skin. NEURO: Alert and oriented 4. No focal sensory or strength deficits. Limitations: no limitations Course Vital Signs 05/06/22 05/06/22 08:50 11:37 Temperature 98.2 F Pulse Rate 81 79 Respiratory 16 18 Rate Blood Pressure 133/91 127/84 O2 Sat by Pulse 96 97 Oximetry Medical Decision Making - Medical Decision Making Based on the patient's presentation and physical exam, she is presenting with a headache following a lumbar puncture yesterday. Likely related to spinal tap headache. Patient will be given IV fluids, IV migraine cocktail, as well as IV caffeine. Patient was in agreement with this plan. I did speak with the on- call anesthesia team, who recommended medical management at this time and be called back if headache persists. Vital signs otherwise within normal limits. Patient was in agreement with this plan. On patient's reevaluation, her headache is completely resolved. She is sitting up. She is asking to go home. I do believe this is reasonable. I did discuss strict return precautions with her. I recommended she call the pain clinic again if needed see if they will do a blood patch, otherwise, return to the emergency department for further medications as needed. She'll be discharged home on Fioricet. She was in agreement this plan. Will follow up with her physicians on an outpatient basis. Vital signs remain within normal limits. I will provide the patient with a prescription for Fioricet. I instructed the patient to follow up with their PCP in the next 1-3 days. I explained that the patient should return to the emergency department if they experience any worsening symptoms. Strict return precautions were discussed with the patient. The patient expressed understanding of these instructions. I answered all questions that the patient had. The patient was discharged home in good conditi on with their prescriptions and follow up information. Disposition Clinical Impression: Spinal headache Disposition: HOME SELF-CARE Condition: Good Instructions (If sedation given, give patient instructions): Acute Headache (ED) Prescriptions: Butalb/Acetaminophen/Caffeine [Fioricet 50-300-40 mg Capsule] 1 cap PO Q6H PRN 3 Days #12 cap PRN Reason: Pain Is patient prescribed a controlled substance at d/c from ED?: Yes When asked, does pt state using other controlled substances?: No If prescribed controlled substance>3 days was MAPS reviewed?: Prescribed <3 Days If opioid is for acute pain is fill amount 7 days or less?: Yes Referrals: Jani Ramirez [Primary Care Provider] - 1-2 days Time of Disposition: 11:25
[2022-05-06 11:38] VITALS: BP 127/84; PULSE 79; RESP 18
== END 2022-05-06 11:47 | disposition home or self-care (01) ==
LOC: EC 08:32
DX: G97.1 Other reaction to spinal and lumbar puncture (principal); E07.9 Disorder of thyroid, unspecified; F17.200 Nicotine dependence, unspecified, uncomplicated; Z79.890 Hormone replacement therapy; Z88.5 Allergy status to narcotic agent
CPT/HCPCS: 99283; 96365; 96366; 96375; J1200; J0780; J1885

== ENCOUNTER 2022-05-19 12:14 | Day surgery (SDC) | payer OTHER ==
[2022-05-14 16:21] VITALS: BMI 41.9
[2022-05-19] MEDS ORDERED: LACTATED RINGERS 1,000 ML IV SCH (12:32)
[2022-05-19] MEDS ORDERED: LIDOCAINE 1% (10MG/ML) FOR IV START INTRADERMA PRN (12:32)
[2022-05-19 12:40] VITALS: RESP 16; TEMP 97.8
[2022-05-19] MEDS ORDERED: IOPAMIDOL M200 10 ML VIAL ONE (13:01)
[2022-05-19] MEDS ORDERED: methylPREDNISolone ACETATE 80 MG/ML 1 ML VIAL ONE (13:01)
[2022-05-19] MEDS ORDERED: MIDAZOLAM 2 MG/2 ML VIAL ONE (13:01)
[2022-05-19] MEDS ORDERED: fentaNYL (PF) 50 MCG/ML 2 ML AMP ONE (13:01)
--- NOTE | 2022-05-19 13:11 | P.PCN ---
Date of Procedure: 05/19/22 Procedure(s) Performed: PREOPERATIVE DIAGNOSIS: 1- Lumbar Degenerative Disc Diseases 2-Lumbar spondylosis with Facet arthropathy without myelopathy POSTOPERATIVE DIAGNOSIS: Same as preop diagnosis. PROCEDURE 1. Lumbar epidural steroid injection under fluoroscopic guidance at the L2-3 level. (Fluoroscopy imaging was available in radiology department) 2. Lumbar epidurogram. ANESTHESIA: moderate sedation with intravenous Versed 2 mg ,and fentanyle 100 Mcg Sedation start time : 1302 Sedation end time : 1310 EBL: Minimal PROCEDURE INDICATION: The patient with low back pain and radiculitis symptoms unresponsive to conservative treatment. Fluoroscopy was used to optimize visualization of the needle placement and to maximize safety. PROCEDURE DESCRIPTION / TECHNIQUE: The patient was seen and identified in the preoperative area. Risks, benefits, complications including but not limited to infections ,bleeding ,allergic reaction to the medications ,nerve damage and not complete pain releife , and alternatives were discussed with the patient. The patient agreed to proceed with the procedure and signed the consent. IV was started, and vital signs were stable. Patient was taken to the OR and time out was completed. The patient was placed in the prone position on procedure table and a pillow was placed under the abdomen to reduce lumbar lordosis. The lumbosacral area was prepped and draped in the usual sterile fashion.ere closely monitored during the procedure. Conscious sedation was used during the procedure to decrease patients anxiety. Vital signs was monitered during the entire procedure. Using anterior-posterior fluoroscopy, the L2-3 interlaminar space was identified and the skin over this site was marked and then infiltrated with 1% lidocaine subcutaneously. Subsequently, a 20-gauge Tuohy epidural needle was inserted and advanced toward the epidural space using the ``Loss of resistance technique and guided by AP and lateral fluoroscopy. The correct needle position in the epidural space was verified with the injection of 2 mL of the water soluble contrast dye Isovue 200 contrast and observing an excellent epidurogram with the epidural spread of the dye, after negative aspiration for blood and CSF and in the absence of paresthesias. Again after negative aspiration, a 6 ml mixture containing 80 mg of Depo-medrol , and 2 ml of preservative free Normal Saline, and 2 ml of preservative free lidocaine 1% solution was injected and a washout of epidurogram was seen. Needle was withdrawn intact, skin was cleansed, and bandages were applied. COMPLICATIONS: None DISPOSITION / PLANS: The patient was placed in a supine position and transferred to the recovery area in a stable condition for observation. There was no evidence of lower extremity motor or sensory deficit after the procedure. Patient was discharged from the recovery room after meeting discharge criteria. Home discharge instructions were given to the patient by the staff. The patient was reexamined prior to discharge. The patient will schedule a follow up in the clinic in 2-4 weeks.
[2022-05-19] MEDS ORDERED: IV FLUID CONTINUATION 650 ML IV ONE (13:15)
[2022-05-19] MEDS ORDERED: LACTATED RINGERS 1,000 ML IV ONE (13:15)
[2022-05-19 13:50] VITALS: BP 143/96; PULSE 91
--- NOTE | 2022-05-19 15:20 | FL ---
EXAMINATION TYPE: FL guided pain mgmt statistic DATE OF EXAM: 05/19/2022 HISTORY: Fluoroscopy time 3 seconds of fluoroscopy provided. IMPRESSION: 1. Fluoroscopy time.
== END 2022-05-19 13:56 | disposition home or self-care (01) ==
LOC: ORPAIN 12:14
PROVIDERS: ATTEND Specialist
DX: M51.16 Intervertebral disc disorders with radiculopathy, lumbar region (principal); M47.26 Other spondylosis with radiculopathy, lumbar region; Z88.5 Allergy status to narcotic agent; Z79.899 Other long term (current) drug therapy; Z79.890 Hormone replacement therapy; F17.200 Nicotine dependence, unspecified, uncomplicated
CPT/HCPCS: 81025; 62323; J2250; J1040; J3010; Q9966

== ENCOUNTER → 2022-06-09 | Day surgery (SDC) | payer OTHER ==
[~2022-06-09] MED LIST changes: +IV FLUID CONTINUATION 1,000 ML IV ONE; -LIDOCAINE 1% (10MG/ML) FOR IV START INTRADERMA PRN; +MIDAZOLAM 2 MG/2 ML VIAL ONE; +fentaNYL (PF) 50 MCG/ML 2 ML AMP ONE
[2022-06-09 11:31] VITALS: RESP 16; TEMP 97.3
--- NOTE | 2022-06-09 12:16 | P.PCN ---
Date of Procedure: 06/09/22 Description of Procedure: Procedure: 1. Lumbar puncture for CSF collection under fluoroscopic guidance PREOPERATIVE DIAGNOSIS: Rule out multiple sclerosis POSTOPERATIVE DIAGNOSIS: Rule out multiple sclerosis SURGEON: Reynold Bruce ANESTHESIA: Local with 1% lidocaine, and IV sedation : Midazolam 2 mg, and fentanyl 100 g Sedation supervision start time: 1153 Sedation supervision end time: 1210 EBL: None. Specimen removed: 3 mL of CSF in each collecting tube X4 PROCEDURE INDICATION: The patient had history of changes in her MRI findings to rule out multiple sclerosis. Consulted for lumbar puncture for CSF collection send it for analysis. PROCEDURE DESCRIPTION: The patient was seen and identified. Risks, benefits, complications, and alternatives were discussed with the patient. The patient agreed to proceed with the procedure and signed the consent, and vital signs were stable. Patient was taken to the procedure area, and time out was completed. The patient was placed in prone position on procedure. . The lumbosacral area was prepped and draped in the usual sterile fashion. Critical pause was taken. Vital signs were closely monitored during the procedure. Using anteroposterior fluoroscopic view L4-L5 interspinous space identified . Skin, and subcutaneous tissue infiltrated with 4 mL of 1% lidocaine. Using 22- gauge 5 inch spinal needle entered in the midline, and lateral view fluoroscopy view. Needle entered close to the ligamentum flavum area. And then patient placed on her left lateral. Then the needle advanced into subarachnoid space with 1 attempt. Clear CSF came out of the spinal needle. 3 mL of CSF fluid collected in each tube 4. Needle was withdrawn intact, skin was cleansed, and bandages were applied. COMPLICATIONS: None. DISPOSITION / PLANS: The patient was placed in a supine position and transferred to the recovery area in a stable condition for observation. Patient was discharged from the recovery room after meeting discharge criteria. Home discharge instructions given to the patient by the staff. The patient was reexamined prior to discharge.
--- NOTE | 2022-06-09 12:20 | FL ---
EXAMINATION TYPE: FL guided pain mgmt statistic DATE OF EXAM: 06/09/2022 CLINICAL HISTORY: Low back pain. TECHNIQUE: Fluoroscopy. COMPARISON: None. FINDINGS: Fluoroscopic guidance was provided during pain relief procedure performed by Dr. Bruce . A total of 7 seconds of fluoroscopic time was utilized during the procedure and 1 spot images ar e acquired. A single image acquired shows needle localization from posterior approach at the superio r L5 level. IMPRESSION: As Above.
[2022-06-09 12:45] VITALS: BP 140/90; PULSE 84
[2022-06-09 22:50] LABS: Glucose,CSF 62 mg/dL (40-70); Total Protein,CSF 41 mg/dL (12-60)
[2022-06-10 00:53] LABS: Appearance,CSF Clear; CSF Tube Number 4; CSF Tube Volume 2.5
[2022-06-10 01:05] LABS: Nucleated Cells, CSF 0 u/L (0-5); Red Blood Cell,CSF 12 u/L (0-10)
[2022-06-10 01:16] LABS: Red Blood Cell, CSF Crenated 2 %; Red Blood Cell, CSF Fresh 98 %
[2022-06-11 13:18] LABS: IgG/Albumin Index (CSF) 0.56 (0.00 - 0.77); Immunoglobulin G 855 mg/dL (700 - 1600)
== END ==
LOC: ORPAIN 09:57
DX: R90.89 Other abnormal findings on diagnostic imaging of central nervous system (principal); E03.9 Hypothyroidism, unspecified; F32.9 Major depressive disorder, single episode, unspecified; F41.9 Anxiety disorder, unspecified; M54.50 Low back pain, unspecified; Z98.891 History of uterine scar from previous surgery; Z48.810 Encounter for surgical aftercare following surgery on the sense organs; Z88.5 Allergy status to narcotic agent; Z98.890 Other specified postprocedural states
CPT/HCPCS: 62270 ×2; 81025; 84157; 82945; 82040; 82042; 82784; 83916; 83873; 89050; J2250; J3010; 99152

== ENCOUNTER → 2022-06-24 | Outpatient (CLI) | payer OTHER ==
[2022-06-24 09:10] VITALS: BP 140/91; PULSE 82; RESP 18; TEMP 97.9
--- NOTE | 2022-06-24 15:10 | P.PAINPG ---
PQRS Measure Charge Sheet Comment: A 36 yr old female with a history of severe and chronic low back pain secondary to lumbar degenerative disc diseases and lumbar spondylosis with facet arthropathy without myelopathy presents today for evaluation s/p DERRICK L2-3. Pt states she experienced 60% pain relief x 2 wks s/p procedure. Pain level is cu rrently at 8/10 in intensity, constant, center of lumbar spine, dull/ achy in character without radiation. Pain is provoked by lifting or standing/walking for periods of 30 min or more. Pain is alleviated with topicals, PT a few years ago, walking/biking to work, TENS unit use, massages at home, heat, ice, medications, repositioning and rest. Interventional pain procedures completed include DERRICK L2-L3 x1, T7-T8 x1; BL RFA L3-5. Patient is currently on Neurontin, Celebrex, Motrin Patient denies any side effects of the medication(s), denies excessive drowsiness or sleepiness, denies suicidal ideation and reports that the current pain medication is helping to control the pain and improve activities of daily living. Patient denies any motor or sensory deficits. Patient denies any fever or night sweats, denies any change in the bowel movements or urination. Physical Examination: -Constitutional: Cooperative. Not in acute distress . - Neurologic: Cranial nerve II to XII intact. No focal neurological deficits. - Psychatric: Alert & oriented x 3. Matching mood & appropriate affect. Judgment and insight intact. - Musculoskeletal: Cervical spine: Muscle bulk/ tone/ strength in the bilateral upper extremities normal Vertebral body tenderness to palpation over Spurling test positive Distraction test positive Facet loading test positive Thoracic spine Muscle bulk / tone/ strength in the bilateral paraspinal muscles normal Vertebral body tender to palpation over Facet loading test positive Lumbar spine: Motor bulk/ tone/ strength lower extremities , thigh and legs : 5/5 Deep tendon reflexes : Normal Knee Jerk. Normal Ankle Jerk . Vertebral body tenderness to palpation over L3 Lumbar Facet Loading Test positive Straight Leg Raise: positive at 30 degrees right side/ left side Gaenslen's Test positive Sacral spine : Severe tenderness over the Sacroiliac joint: right side / left side Range of motion: Flexion of the lumbar spine <60 degrees Range of motion: Extension of the lumbar spine <20 degrees Gaenslen's Test positive Tello's Test positive Adrián test: positive right side / left side Thigh Thrust Test Sacral Thrust Test Assessment and plan: Chronic low back pain secondary to lumbar degenerative disc disease , lumbar spondylosis with facet arthropathy without myelopathy Recommendation of DERRICK L3-L4. May need a series of injections, up to 3 within a 6 mo period, for optimal pain relief. Risks, benefits of procedure discussed and pt verbalized understanding. Admits to anticoagulant use or medical history of diabetes. Protocol for discontinuation/ continuation of meds ferdinand procedure discussed. All patient questions answered MAPS reviewed and it was appropriate. I have spent less than 30 minutes on patient care today. Dr Rosales was available by phone for the evaluation of this patient. The time was used to review the medical records including relevant urine studies and Prescription history (MAPs), review of the available imaging, evaluation and examination of the patient, coordination of care with the medical staff and if applicable referring physicians, as well as creation of the medical record PQRS Narrative: Smoking Status Current every day smoker Hx Alcohol Use (MH) Yes: occasional Home Medications: Ambulatory Orders Celecoxib [CeleBREX] 100 mg PO BID 03/20/20 Levothyroxine Sodium [Synthroid] 150 mcg PO QAM 03/20/20 busPIRone HCl [Buspar] 15 mg PO BID 03/20/20 Ibuprofen 400 mg PO Q6H PRN 05/17/20 hydrOXYzine HCL [Atarax] 50 mg PO TID PRN 08/22/21 Gabapentin [Neurontin] 200 mg PO TID 10/01/21 buPROPion SR [Wellbutrin SR] 150 mg PO BID 05/01/22 Butalb/Acetaminophen/Caffeine [Fioricet 50-300-40 mg Capsule] 1 cap PO Q6H PRN 3 Days #12 cap 05/06/22 Controlled Substance Measures - Controlled Substance Measures Is patient prescribed a controlled substance at discharge?: No
== END ==
LOC: PNWHC3 08:33
PROVIDERS: ATTEND Specialist
DX: M51.36 Other intervertebral disc degeneration, lumbar region (principal); M47.816 Spondylosis without myelopathy or radiculopathy, lumbar region; G89.29 Other chronic pain; F17.200 Nicotine dependence, unspecified, uncomplicated; Z88.5 Allergy status to narcotic agent
CPT/HCPCS: 99211

== ENCOUNTER → 2022-09-02 | Outpatient (CLI) | payer OTHER ==
[2022-09-02 13:04] VITALS: BP 151/113; PULSE 95; RESP 18; TEMP 98
--- NOTE | 2022-09-02 14:45 | P.PAINPG ---
PQRS Measure Charge Sheet Comment: A 36 yr old female with a history of severe and chronic low back pain secondary to lumbar DDD and spondylosis with facet arthropathy without myelopathy presents today for evaluaiton s/p DERRICK L3-L4. Pt states she experienced 75% pain relief x 6 wks s/p procedure. Pain level is currently at 8 /10 in intensity, constant, localized in the mid to lower lumbar spine, achy in character w shooting towards . Pain is provoked by twisting, bending. Pain is alleviated with PT x 6 wks years ago, injections, use of a TENS unit, medications (Celebrex, Neurontin), topicals, heat, ice, repositioning and rest. Interventional pain procedures completed include DERRICK L3-L4 Patient is currently on Celebrex, Neurontin Patient denies any side effects of the medication(s), denies excessive drowsiness or sleepiness, denies suicidal ideation and reports that the current pain medication is helping to control the pain and improve activities of daily living. Patient denies any motor or sensory deficits. Patient denies any fever or night sweats, denies any change in the bowel movements or urination. Physical Examination: -Constitutional: Cooperative. Not in acute distress . - Neurologic: Cranial nerve II to XII intact. No focal neurological deficits. - Psychatric: Alert & oriented x 3. Matching mood & appropriate affect. Judgment and insight intact. - Musculoskeletal: Cervical spine: Muscle bulk/ tone/ strength in the bilateral upper extremities normal Vertebral body tenderness to palpation over Spurling test positive Distraction test positive Facet loading test positive Thoracic spine Muscle bulk / tone/ strength in the bilateral paraspinal muscles normal Vertebral body tender to palpation over Facet loading test positive Lumbar spine: Motor bulk/ tone/ strength lower extremities , thigh and legs : 5/5 Deep tendon reflexes : Normal Knee Jerk. Normal Ankle Jerk . Vertebral body tenderness to palpation over L4 Lumbar Facet Loading Test positive Straight Leg Raise: positive at 30 degrees right side/ left side Gaenslen's Test positive Sacral spine : Severe tenderness over the Sacroiliac joint: right side / left side Range of motion: Flexion of the lumbar spine <60 degrees Range of motion: Extension of the lumbar spine <20 degrees Gaenslen's Test positive Adrián test: positive right side / left side Thigh Thrust Test Sacral Thrust Test Assessment and plan: Chronic low back pain secondary to lumbar degenerative disc disease, spondylosis with facet arthropathy without myelopathy Recommendation of DERRICK L4-L5. May need a series of injections, up to 4 per 12 mo period, for optimal pain relief. Risks, benefits of procedure discussed and pt verbalized understanding. Admits to anticoagulant use or medical history of diabetes. Protocol for discontinuation/ continuation of medications ferdinand procedure discussed. All patient questions answered I have spent less than 30 minutes on patient care today. Dr Rosales was available by phone for the evaluation of this patient. The time was used to review the medical records including relevant urine studies and Prescription history (MAPs), review of the available imaging, evaluation and examination of the patient, coordination of care with the medical staff and if applicable referring physicians, as well as creation of the medical record PQRS Narrative: Smoking Status Current every day smoker Hx Alcohol Use (MH) Yes: occasional Home Medications: Ambulatory Orders Celecoxib [CeleBREX] 100 mg PO BID 03/20/20 Levothyroxine Sodium [Synthroid] 150 mcg PO QAM 03/20/20 busPIRone HCl [Buspar] 15 mg PO BID 03/20/20 Ibuprofen 400 mg PO Q6H PRN 05/17/20 hydrOXYzine HCL [Atarax] 50 mg PO TID PRN 08/22/21 Gabapentin [Neurontin] 200 mg PO TID 10/01/21 ALPRAZolam [Xanax] 0.25 mg PO TID PRN 06/30/22 Cyclobenzaprine [Flexeril] 10 mg PO HS 06/30/22 buPROPion XL [Wellbutrin XL] 300 mg PO QAM 06/30/22 Controlled Substance Measures - Controlled Substance Measures Is patient prescribed a controlled substance at discharge?: No
== END ==
LOC: PNWHC3 12:35
PROVIDERS: ATTEND Specialist
DX: M47.812 Spondylosis without myelopathy or radiculopathy, cervical region (principal); M51.36 Other intervertebral disc degeneration, lumbar region; G89.29 Other chronic pain; Z79.01 Long term (current) use of anticoagulants; E11.9 Type 2 diabetes mellitus without complications; Z88.5 Allergy status to narcotic agent; F17.200 Nicotine dependence, unspecified, uncomplicated
CPT/HCPCS: 99211

== ENCOUNTER 2022-12-22 06:59 | Day surgery (SDC) | payer OTHER ==
[~2022-12-22 06:59] MED LIST changes: -IV FLUID CONTINUATION 1,000 ML IV ONE; +LIDOCAINE 1% (10MG/ML) FOR IV START INTRADERMA PRN; -MIDAZOLAM 2 MG/2 ML VIAL ONE; -fentaNYL (PF) 50 MCG/ML 2 ML AMP ONE
[2022-12-22 07:25] VITALS: RESP 16; TEMP 97.6
[2022-12-22 07:38] LABS: Glucose,Whole Blood 116 mg/dL (70-110)
[2022-12-22] MEDS ORDERED: IOPAMIDOL M200 10 ML VIAL ONE (07:50)
[2022-12-22] MEDS ORDERED: fentaNYL (PF) 50 MCG/ML 2 ML AMP ONE (07:50)
[2022-12-22] MEDS ORDERED: methylPREDNISolone ACETATE 40 MG/ML 1 ML VIAL ONE (07:50)
[2022-12-22] MEDS ORDERED: MIDAZOLAM 2 MG/2 ML VIAL ONE (07:50)
--- NOTE | 2022-12-22 08:06 | P.PCN ---
Date of Procedure: 12/22/22 Procedure(s) Performed: PREOPERATIVE DIAGNOSIS: 1- Lumbar Degenerative Disc Diseases 2-Lumbar spondylosis with Facet arthropathy without myelopathy POSTOPERATIVE DIAGNOSIS: Same as preop diagnosis. PROCEDURE 1. Lumbar epidural steroid injection under fluoroscopic guidance at the L4-5 level. (Fluoroscopy imaging was available in radiology department) 2. Lumbar epidurogram. ANESTHESIA: moderate sedation with intravenous Versed 2 mg ,and fentanyle 100 Mcg Sedation start time : 0757 Sedation end time : 0803 EBL: Minimal PROCEDURE INDICATION: The patient with low back pain and radiculitis symptoms unresponsive to conservative treatment. Fluoroscopy was used to optimize visualization of the needle placement and to maximize safety. PROCEDURE DESCRIPTION / TECHNIQUE: The patient was seen and identified in the preoperative area. Risks, benefits, complications including but not limited to infections ,bleeding ,allergic reaction to the medications ,nerve damage and not complete pain releife , and alternatives were discussed with the patient. The patient agreed to proceed with the procedure and signed the consent. IV was started, and vital signs were stable. Patient was taken to the OR and time out was completed. The patient was placed in the prone position on procedure table and a pillow was placed under the abdomen to reduce lumbar lordosis. The lumbosacral area was prepped and draped in the usual sterile fashion.ere closely monitored during the procedure. Conscious sedation was used during the procedure to decrease patients anxiety. Vital signs was monitered during the entire procedure. Using anterior-posterior fluoroscopy, the L4-5 interlaminar space was identified and the skin over this site was marked and then infiltrated with 1% lidocaine subcutaneously. Subsequently, a 20-gauge Tuohy epidural needle was inserted and advanced toward the epidural space using the ``Loss of resistance technique and guided by AP and lateral fluoroscopy. The correct needle position in the epidural space was verified with the injection of 2 mL of the water soluble contrast dye Isovue 200 contrast and observing an excellent epidurogram with the epidural spread of the dye, after negative aspiration for blood and CSF and in the absence of paresthesias. Again after negative aspiration, a 6 ml mixture containing 40 mg of Depo-medrol , and 2 ml of preservative free Normal Saline, and 2 ml of preservative free lidocaine 1% solution was injected and a washout of epidurogram was seen. Needle was withdrawn intact, skin was cleansed, and bandages were applied. COMPLICATIONS: None DISPOSITION / PLANS: The patient was placed in a supine position and transferred to the recovery area in a stable condition for observation. There was no evidence of lower extremity motor or sensory deficit after the procedure. Patient was discharged from the recovery room after meeting discharge criteria. Home discharge instructions were given to the patient by the staff. The patient was reexamined prior to discharge. The patient will schedule a follow up in the clinic in 2-4 weeks.
[2022-12-22] MEDS ORDERED: IV FLUID CONTINUATION 1,000 ML IV ONE (08:08)
[2022-12-22 08:24] VITALS: BP 111/76; PULSE 75
--- NOTE | 2022-12-22 08:43 | FL ---
EXAMINATION TYPE: FL guided pain mgmt statistic DATE OF EXAM: 12/22/2022 HISTORY: Fluoroscopy time DAP [id number] of fluoroscopy provided. IMPRESSION: 1. Fluoroscopy time.
== END 2022-12-22 08:38 | disposition home or self-care (01) ==
LOC: ORPAIN 06:59
PROVIDERS: ATTEND Specialist
DX: M51.16 Intervertebral disc disorders with radiculopathy, lumbar region (principal); M47.26 Other spondylosis with radiculopathy, lumbar region; Z88.5 Allergy status to narcotic agent
CPT/HCPCS: 62323; 81025; J2250; J1030; J3010; Q9966

== ENCOUNTER → 2023-02-10 | Outpatient (CLI) | payer OTHER ==
[2023-02-10 14:29] VITALS: BP 148/88; PULSE 101; RESP 18; TEMP 98.7
--- NOTE | 2023-02-10 15:25 | P.PAINPG ---
PQRS Measure Charge Sheet Comment: A 37 yr old female with a history of severe and chronic LBP secondary to lumbar DDD and spondylosis with facet arthropathy without myelopathy presents today for evaluation s/p DERRICK L4-5. Pt states she experienced 80 % pain relief x 6 wks s/p procedure. Pain level is provoked at 7/10 in intensity, constant, localized in the lower cervical spine, sharp in character w shooting towards the BL shoulders. Pain is provoked by hyperextension. Pain is alleviated with medications, topicals, injections, heat, ice, use of a TENS unit at home, repositioning and rest. Interventional pain procedures completed include ESIs L2-3, L3-4, L4-5, T7-8. Patient is currently on Celebrex Patient denies any side effects of the medication(s), denies excessive drowsiness or sleepiness, denies suicidal ideation and reports that the current pain medication is helping to control the pain and improve activities of daily living. Patient denies any motor or sensory deficits. Patient denies any fever or night sweats, denies any change in the bowel movements or urination. Physical Examination: -Constitutional: Cooperative. Not in acute distress . - Neurologic: Cranial nerve II to XII intact. No focal neurological deficits. - Psychatric: Alert & oriented x 3. Matching mood & appropriate affect. Judgment and insight intact. - Musculoskeletal: Cervical spine: Muscle bulk/ tone/ strength in the bilateral upper extremities normal Vertebral body tenderness to palpation over C6 Spurling test positive over C6-7 Distraction test positive Facet loading test positive TTP Thoracic spine Muscle bulk / tone/ strength in the bilateral paraspinal muscles normal Vertebral body tender to palpation over Facet loading test positive TTP Lumbar spine: Motor bulk/ tone/ strength lower extremities , thigh and legs : 5/5 Deep tendon reflexes : Normal Knee Jerk. Normal Ankle Jerk . Vertebral body tenderness to palpation over Lumbar Facet Loading Test positive Straight Leg Raise: positive at 30 degrees right side/ left side Gaenslen's Test positive Sacral spine : Severe tenderness over the Sacroiliac joint: right side / left side Range of motion: Flexion of the lumbar spine <60 degrees Range of motion: Extension of the lumbar spine <20 degrees Gaenslen's Test positive right side / left side Adrián test: positive right side / left side Thigh Thrust Test positive right side / left side Sacral Thrust Test positive right side / left side Imaging: MRI without contrast of the cervical spine from 04/10/22 reviewed Assessment and plan: Chronic neck pain secondary to cervical DDD, spondylolisthesis with facet arthropathy without myelopathy Recommendation of DERRICK C6-7 #1. May need a series of injections for op timal pain relief. Risks, benefits of procedure discussed and pt verbalized understanding. Admits to anticoagulant use or medical history of diabetes. Protocol for discontinuation/ continuation of medications ferdinand procedure discussed. All questions answered. I have spent less than 30 minutes on patient care today. Dr Rosales was available by phone for the evaluation of this patient. The time was used to review the medical records including relevant urine studies and Prescription history (MAPs), review of the available imaging, evaluation and examination of the patient, coordination of care with the medical staff and if applicable referring physicians, as well as creation of the medical record PQRS Narrative: Smoking Status Current every day smoker Hx Alcohol Use (MH) Yes: occasional Home Medications: Ambulatory Orders Celecoxib [CeleBREX] 100 mg PO BID 03/20/20 busPIRone HCl [Buspar] 15 mg PO QID 03/20/20 Ibuprofen 400 mg PO Q6H PRN 05/17/20 hydrOXYzine HCL [Atarax] 50 mg PO TID PRN 08/22/21 ALPRAZolam [Xanax] 0.25 mg PO TID PRN 06/30/22 buPROPion XL [Wellbutrin XL] 300 mg PO QAM 06/30/22 Cyclobenzaprine [Flexeril] 10 mg PO HS PRN 12/17/22 Divalproex [Depakote] 250 mg PO TID 12/17/22 Unk Metformin 1 tab PO HS 12/17/22 Unk Steroid Cream 1 applic TOPICAL DIRECTED 12/17/22 Controlled Substance Measures - Controlled Substance Measures Is patient prescribed a controlled substance at discharge?: No
== END ==
LOC: PNWHC3 13:49
PROVIDERS: ATTEND Specialist
DX: M50.30 Other cervical disc degeneration, unspecified cervical region (principal); M47.816 Spondylosis without myelopathy or radiculopathy, lumbar region; F17.210 Nicotine dependence, cigarettes, uncomplicated; Z88.5 Allergy status to narcotic agent
CPT/HCPCS: 99211

== ENCOUNTER 2023-02-25 07:08 | Emergency (ER) | payer OTHER ==
[2023-02-25] MEDS ORDERED: IPRATROPIUM-ALBUTEROL 3 ML NEB INHALATION STA (07:26)
[2023-02-25] MEDS ORDERED: methylPREDNISolone SOD SUCCI 125 MG/2 ML VIAL IV STA (07:26)
[2023-02-25] MEDS ORDERED: KETOROLAC 15 MG/ML 1 ML VIAL IVP STA (07:26)
[2023-02-25] MEDS ORDERED: SODIUM CHLORIDE 0.9% 1,000 ML IV ONE (07:26)
[2023-02-25 07:44] LABS: Basophils % (A) 0 %; Eosinophils # (A) 0.1 k/uL (0-0.7); Eosinophils % (A) 1 %; HCT 38.9 % (34.0-46.0); HGB 13.1 gm/dL (11.4-16.0); Lymphocytes % (A) 17 %; MCH 29.9 pg (25.0-35.0); MCHC 33.8 g/dL (31.0-37.0); MCV 88.3 fL (80.0-100.0); Mean Platelet Volume 7.2; Monocytes # (A) 0.6 k/uL (0-1.0); Monocytes % (A) 5 %; Neutrophils % (A) 75 %; Platelet Count 333 k/uL (150-450); RDW 12.9 % (11.5-15.5); WBC 11.9 k/uL (3.8-10.6)
--- NOTE | 2023-02-25 07:56 | ED ---
URI HPI - General Chief Complaint: Upper Respiratory Infection Stated Complaint: UPER RESPIRATORY Time Seen by Provider: 02/25/23 07:17 Source: patient, RN notes reviewed Mode of arrival: ambulatory Limitations: no limitations - History of Present Illness Initial Comments: 37-year-old female presents emergency Department chief complaint shortness of breath. Patient states that she started not feeling well few days ago seen in urgent care sent out his own 20 mg twice a day she states she has diagnosed with acute bronchitis. Patient states that sometime better. Patient have increasing shortness of breath. Patient states her chest feels very tight. She does not that she is a smoker states that she has not smoked a few days because of her symptoms. - Related Data Home Medications Medication Instructions Recorded Confirmed Celecoxib [CeleBREX] 100 mg PO BID 03/20/20 02/10/23 busPIRone HCl [Buspar] 15 mg PO QID 03/20/20 02/10/23 Ibuprofen 400 mg PO Q6H PRN 05/17/20 02/10/23 hydrOXYzine HCL [Atarax] 50 mg PO TID PRN 08/22/21 02/10/23 ALPRAZolam [Xanax] 0.25 mg PO TID PRN 06/30/22 02/10/23 buPROPion XL [Wellbutrin XL] 300 mg PO QAM 06/30/22 02/10/23 Cyclobenzaprine [Flexeril] 10 mg PO HS PRN 12/17/22 02/10/23 Divalproex [Depakote] 250 mg PO TID 12/17/22 02/10/23 Unk Metformin 1 tab PO HS 12/17/22 02/10/23 Unk Steroid Cream 1 applic TOPICAL DIRECTED 12/17/22 02/10/23 Previous Rx's Medication Instructions Recorded Albuterol Inhaler [Ventolin Hfa 1 - 2 puff INHALATION Q6H PRN #1 02/25/23 Inhaler] each Albuterol Nebulized [Ventolin 2.5 mg INHALATION Q4H PRN #75 ml 02/25/23 Nebulized] Azithromycin [Zithromax Z Pack] 0 tab PO DIRECTED #6 tab 02/25/23 Allergies Allergy/AdvReac Type Severity Reaction Status Date / Time codeine AdvReac Itching Verified 05/25/23 07:16 Review of Systems ROS Statement: Those systems with pertinent positive or pertinent negative responses have been documented in the HPI. ROS Other: All systems not noted in ROS Statement are negative. Past Medical History Past Medical History: Osteoarthritis (OA), Skin Disorder, Thyroid Disorder Additional Past Medical History / Comment(s): Migraines, bulging discs in neck, deteriorating discs in back, Vitiligo. History of Any Multi-Drug Resistant Organisms: None Reported Past Surgical History: Section, Tubal Ligation, Uterine Ablation Additional Past Surgical History / Comment(s): Surgery for incomplete cleft lip, sinus surgery.,PAIN CLINIC PROCEDURES Past Anesthesia/Blood Transfusion Reactions: No Reported Reaction Past Psychological History: Anxiety Smoking Status: Current every day smoker Past Alcohol Use History: Occasional Past Drug Use History: None Reported - Past Family History Mother Family Medical History: Diabetes Mellitus General Exam Limitations: no limitations General appearance: alert, in no apparent distress Head exam: Present: atraumatic, normocephalic, normal inspection Eye exam: Present: normal appearance, PERRL, EOMI. Absent: scleral icterus, conjunctival injection, periorbital swelling ENT exam: Present: normal exam, normal oropharynx, mucous membranes moist Neck exam: Present: normal inspection, full ROM. Absent: tenderness, meningismus, lymphadenopathy Respiratory exam: Present: respiratory distress, wheezes, decreased breath sounds. Absent: normal lung sounds bilaterally, rales, rhonchi, stridor Cardiovascular Exam: Present: regular rate, normal rhythm, normal heart sounds. Absent: systolic murmur, diastolic murmur, rubs, gallop, clicks GI/Abdominal exam: Present: soft, normal bowel sounds. Absent: distended, tenderness, guarding, rebound, rigid Course Vital Signs 02/25/23 02/25/23 02/25/23 07:11 08:10 08:25 Temperature 99.3 F Pulse Rate 110 H 85 89 Respiratory 22 Rate Blood Pressure 151/105 O2 Sat by Pulse 96 Oximetry 02/25/23 09:13 Temperature 98.9 F Pulse Rate 112 H Respiratory 26 H Rate Blood Pressure 131/102 O2 Sat by Pulse 95 Oximetry Medical Decision Making - Medical Decision Making Was pt. sent in by a medical professional or institution (, PA, PROTOTYPE ENGINEER MANAGER, urgent care, hospital, or correction...) When possible be specific @ -[No] Did you speak to anyone other than the patient for history (EMS, parent, family, police, friend...)? What history was obtained from this source @ -[No] Did you review nursing and triage notes (agree or disagree)? Why? @ -[I reviewed and agree with nursing and triage notes] Were old charts reviewed (outside hosp., previous admission, EMS record, old EKG, old radiological studies, urgent care reports/EKG's, correction records)? Report findings @ -[No old charts were reviewed] Differential Diagnosis (chest pain, altered mental status, abdominal pain women, abdominal pain men, vaginal bleeding, weakness, fever, dyspnea, syncope, headache, dizziness, GI bleed, back pain, seizure, CVA, palpatations, mental health, musculoskeletal)? @ -[Differential Dyspnea: Coronary syndrome, arrhythmia, tamponade, asthma, COPD, pulmonary embolism, pneumonia, pneumothorax, pulmonary effusion, anaphylaxis, diabetic ketoacidosis, flailed chest, pulmonary contusion, diaphragmatic rupture, anemia, neuromuscular, this is not meant to be an all-inclusive list. e] EKG interpreted by me (3pts min.). @ -[As above] X-rays interpreted by me (1pt min.). @ -[Chest x-ray shows no acute carpal), no pneumothorax or pneumonia] CT interpreted by me (1pt min.). @ -[CT chest angiogram no evidence of PE, there is atypical pneumonia changes noted] U/S interpreted by me (1pt. min.). @ -[None done] What testing was considered but not performed or refused? (CT, X-rays, U/S, labs)? Why? @ -[None] What meds were considered but not given or refused? Why? @ -[None] Did you discuss the management of the patient with other professionals (professionals i.e. , PA, PROTOTYPE ENGINEER MANAGER, lab, RT, psych nurse, social human services assistants, drafting layout man, teacher, dog license officer supervisor, comp field case manager)? Give summary @ -[No] Was smoking cessation discussed for >3mins.? @ -[I discussed smoking cessation for greater than 3 minutes. The risk of smoking were discussed with the patient including but not limited to risks of cancer, stroke, coronary artery disease and COPD. Also discussed with patient were multiple methods of quitting smoking. Lastly we discussed the financial cost of smoking.] Was critical care preformed (if so, how long)? @ -[No] Were there social determinants of health that impacted care today? How? (Homelessness, low income, unemployed, alcoholism, drug addiction, transportation, low edu. Level, literacy, decrease access to med. care, penitentiary, rehab)? @ -[No] Was there de-escalation of care discussed even if they declined (Discuss DNR or withdrawal of care, Hospice)? DNR status @ -[No] What co-morbidities impacted this encounter? (DM, HTN, Smoking, COPD, CAD, Cancer, CVA, ARF, Chemo, Hep., AIDS, mental health diagnosis, sleep apnea, morbid obesity)? @ -[Smoking history] Was patient admitted / discharged? Hospital course, mention meds given and route, prescriptions, significant lab abnormalities, going to OR and other pertinent info. @ -[Discharge patient to for cholelithiasis, viral swab, x-ray and CT. Patient's found to have atypical pneumonia. Patient did have diffuse bronchial SPASM which to breathing treatments were given symptoms have improved. Patient was given IV steroids. She'll be discharged after Rocephin with azithromycin, albuterol attenuation of her prescribed steroids.] Undiagnosed new problem with uncertain prognosis? @ -[No] Drug Therapy requiring intensive monitoring for toxicity (Heparin, Nitro, Insulin, Cardizem)? @ -[No] Were any procedures done? @ -[No] Diagnosis/symptom? @ -[Atypical pneumonia with bronchospasm Acute, or Chronic, or Acute on Chronic? @ -Acute Uncomplicated (without systemic symptoms) or Complicated (systemic symptoms)? @ -Complicated Side effects of treatment? @ -[No] Exacerbation, Progression, or Severe Exacerbation? @ -[No] Poses a threat to life or bodily function? How? (Chest pain, [place], [place], pneumonia, PE, COPD, DKA, ARF, appy, cholecystitis, CVA, Diverticulitis, Homicidal, Suicidal, threat to staff... and all critical care pts) @ -[yes can cause respiratory depression, respiratory arrest] - Lab Data Result diagrams: 02/25/23 07:34 02/25/23 07:34 Lab Results 02/25/23 02/25/23 02/25/23 Range/Units 07:34 07:34 07:34 WBC 11.9 H (3.8-10.6) k/uL RBC 4.40 (3.80-5.40) m/uL Hgb 13.1 (11.4-16.0) gm/dL Hct 38.9 (34.0-46.0) % MCV 88.3 (80.0-100.0) fL MCH 29.9 (25.0-35.0) pg MCHC 33.8 (31.0-37.0) g/dL RDW 12.9 (11.5-15.5) % Plt Count 333 (150-450) k/uL MPV 7.2 Neutrophils % 75 % Lymphocytes % 17 % Monocytes % 5 % Eosinophils % 1 % Basophils % 0 % Neutrophils # 9.0 H (1.3-7.7) k/uL Lymphocytes # 2.0 (1.0-4.8) k/uL Monocytes # 0.6 (0-1.0) k/uL Eosinophils # 0.1 (0-0.7) k/uL Basophils # 0.0 (0-0.2) k/uL D-Dimer 0.64 H (<0.60) mg/L FEU Sodium (137-145) mmol/L Potassium (3.5-5.1) mmol/L Chloride (98-107) mmol/L Carbon Dioxide (22-30) mmol/L Anion Gap mmol/L BUN (7-17) mg/dL Creatinine (0.52-1.04) mg/dL Est GFR (CKD-EPI)AfAm (>60 ml/min/1.73 sqM) Est GFR (CKD-EPI)NonAf (>60 ml/min/1.73 sqM) Glucose (74-99) mg/dL Calcium (8.4-10.2) mg/dL Total Bilirubin (0.2-1.3) mg/dL AST (14-36) U/L ALT (4-34) U/L Alkaline Phosphatase (38-126) U/L Troponin I (0.000-0.034) ng/mL Total Protein (6.3-8.2) g/dL Albumin (3.5-5.0) g/dL Influenza Type A (PCR) Not Detected (Not Detectd) Influenza Type B (PCR) Not Detected (Not Detectd) RSV (PCR) Not Detected (Not Detectd) SARS-CoV-2 (PCR) Not Detected (Not Detectd) 02/25/23 02/25/23 Range/Units 07:34 07:34 WBC (3.8-10.6) k/uL RBC (3.80-5.40) m/uL Hgb (11.4-16.0) gm/dL Hct (34.0-46.0) % MCV (80.0-100.0) fL MCH (25.0-35.0) pg MCHC (31.0-37.0) g/dL RDW (11.5-15.5) % Plt Count (150-450) k/uL MPV Neutrophils % % Lymphocytes % % Monocytes % % Eosinophils % % Basophils % % Neutrophils # (1.3-7.7) k/uL Lymphocytes # (1.0-4.8) k/uL Monocytes # (0-1.0) k/uL Eosinophils # (0-0.7) k/uL Basophils # (0-0.2) k/uL D-Dimer (<0.60) mg/L FEU Sodium 136 L (137-145) mmol/L Potassium 3.6 (3.5-5.1) mmol/L Chloride 103 (98-107) mmol/L Carbon Dioxide 23 (22-30) mmol/L Anion Gap 10 mmol/L BUN 9 (7-17) mg/dL Creatinine 0.68 (0.52-1.04) mg/dL Est GFR (CKD-EPI)AfAm >90 (>60 ml/min/1.73 sqM) Est GFR (CKD-EPI)NonAf >90 (>60 ml/min/1.73 sqM) Glucose 95 (74-99) mg/dL Calcium 8.1 L (8.4-10.2) mg/dL Total Bilirubin 0.2 (0.2-1.3) mg/dL AST 22 (14-36) U/L ALT 22 (4-34) U/L Alkaline Phosphatase 63 (38-126) U/L Troponin I <0.012 (0.000-0.034) ng/mL Total Protein 6.0 L (6.3-8.2) g/dL Albumin 3.4 L (3.5-5.0) g/dL Influenza Type A (PCR) (Not Detectd) Influenza Type B (PCR) (Not Detectd) RSV (PCR) (Not Detectd) SARS-CoV-2 (PCR) (Not Detectd) - EKG Data -: EKG Interpreted by Me EKG Comments: EKG performed at 7:44 sinus tachycardia rate of 101. pr 146 QRS 93 QT/QTC 321/379 Disposition Clinical Impression: Atypical pneumonia Disposition: HOME SELF-CARE Condition: Stable Instructions (If sedation given, give patient instructions): Pneumonia (ED) Additional Instructions: Please return to the Emergency Department if symptoms worsen or any other concerns. Prescriptions: Albuterol Inhaler [Ventolin Hfa Inhaler] 1 - 2 puff INHALATION Q6H PRN #1 each PRN Reason: Shortness Of Breath Albuterol Nebulized [Ventolin Nebulized] 2.5 mg INHALATION Q4H PRN #75 ml PRN Reason: difficulty in breathing Azithromycin [Zithromax Z Pack] 0 tab PO DIRECTED #6 tab Is patient prescribed a controlled substance at d/c from ED?: No Referrals: Pino Galvez MD [REFERRING] - 1-2 days Time of Disposition: 10:10
[2023-02-25 07:58] LABS: ALT 22 U/L (4-34); AST 22 U/L (14-36); African American GFR (CKD) >90 (>60 ml/min/1.73 sqM); Albumin 3.4 g/dL (3.5-5.0); Alkaline Phosphatase 63 U/L (38-126); Anion Gap 10 mmol/L; Blood Urea Nitrogen 9 mg/dL (7-17); Calcium 8.1 mg/dL (8.4-10.2); Carbon Dioxide 23 mmol/L (22-30); Chloride 103 mmol/L (98-107); Glucose 95 mg/dL (74-99); Non-African American GFR(CKD) >90 (>60 ml/min/1.73 sqM); Potassium 3.6 mmol/L (3.5-5.1); Sodium 136 mmol/L (137-145); Total Bilirubin 0.2 mg/dL (0.2-1.3)
--- NOTE | 2023-02-25 08:27 | XR ---
EXAMINATION TYPE: XR chest 2V DATE OF EXAM: 02/25/2023 COMPARISON: None HISTORY: 37-year-old female with cough TECHNIQUE: PA and lateral views FINDINGS: Heart normal size. Aorta and pulmonary vasculature are within normal limits. There is some patchy lef t midlung opacity. No consolidation or pleural effusion. IMPRESSION: Patchy left midlung atelectasis versus developing pneumonia.
[2023-02-25 09:15] VITALS: BP 131/102; PULSE 112; RESP 26; TEMP 98.9
--- NOTE | 2023-02-25 09:54 | CT ---
EXAMINATION TYPE: CT chest angio for PE CT DLP: 534 mGycm, Automated exposure control for dose reduction was used. DATE OF EXAM: 02/25/2023 9:33 AM COMPARISON: Chest radiograph from same day. CLINICAL INDICATION:Female, 37 years old with history of CP, sob, elevated D-Dimer; Cough, SOB, eleva logan d dimer TECHNIQUE/CONTRAST: CTA scan of the thorax is performed with IV Contrast, patient injected with 100 mL of Isovue 370, pul monary embolism protocol. MIP images are created and reviewed these [facility] FINDINGS: Pulmonary Artery: Poor bolus timing limits evaluation. No spinal, trunk embolus visualized. The remai nder of exam is nondiagnostic. Pulmonary trunk is within normal limits measuring 2.7 cm. Lungs/Pleura: Peripheral groundglass opacities are seen throughout the lungs. Airway: Large airways are patent. Heart: Heart is within normal limits for size. Vasculature: No evidence of aortic aneurysm. Mediastinum: No gross evidence of adenopathy. Small hiatal hernia. Musculoskeletal: No acute osseous abnormalities, mild multilevel disc degeneration changes. Soft Tissues: Unremarkable. Lower neck: No significant findings. Upper Abdomen: Adenomatous hypertrophy changes of the left adrenal gland versus underlying adrenal ad enoma. IMPRESSION: 1. Limited evaluation secondary to bolus timing is no evidence for pulmonary trunk embolus. The remai nder of the exam is nondiagnostic. 2. Scattered glass opacities compatible with which can be seen in setting of atypical pneumonia versu s other etiologies. Clinical correlation advised.
[2023-02-25] MEDS ORDERED: cefTRIAXone IN SWFI 1,000 MG/10 ML SYRINGE IVP STA (10:04)
== END 2023-02-25 10:18 | disposition home or self-care (01) ==
LOC: EC 07:08
DX: J18.9 Pneumonia, unspecified organism (principal); M19.90 Unspecified osteoarthritis, unspecified site; F41.9 Anxiety disorder, unspecified; F17.200 Nicotine dependence, unspecified, uncomplicated; Z20.822 Contact with and (suspected) exposure to COVID-19; Z79.899 Other long term (current) drug therapy; Z88.6 Allergy status to analgesic agent
CPT/HCPCS: 36415; 94640; 93005; 85379; 80053; 84484; 85025; 87636; 71046; 71275; 99285; 96374; 96375 ×2; 96361 ×2; J2930; J0696; J1885; Q9967

== ENCOUNTER → 2023-04-20 | Outpatient (CLI) | payer OTHER ==
--- NOTE | 2023-04-27 11:55 | HM ---
HOLTER MONITOR REPORT The patient was monitored for 24 hours. FINDINGS: The baseline rhythm is sinus mechanism with normal conduction. The average rate 93 beats per minute, minimum 73, maximum 128 beats per minute. Ventricular ectopic activity was present in the form of rare single PVCs. Supraventricular ectopic activity was present in the form of rare single PACs. Symptoms of chest tightness and argument did not correlate with any dysrhythmia. CONCLUSION: 1. Sinus mechanism baseline rhythm. 2. Rare ventricular ectopic activity. 3. Rare supraventricular ectopic activity. 4. Symptoms did not correlate with any dysrhythmia. MMODL / IJN: [id number] /
== END | disposition home or self-care (01) ==
LOC: RADECHMAIN 12:34
PROVIDERS: ATTEND Family Medicine
DX: I49.3 Ventricular premature depolarization (principal); R00.2 Palpitations
CPT/HCPCS: 93225; 93226

== ENCOUNTER 2023-07-26 07:37 | Emergency (ER) | payer OTHER ==
[2023-07-26] MEDS ORDERED: ACETAMINOPHEN TAB 325 MG TAB PO STA (08:03)
[2023-07-26 08:42] LABS: Basophils % (A) 0 %; Eosinophils # (A) 0.1 k/uL (0-0.7); Eosinophils % (A) 1 %; HCT 42.4 % (34.0-46.0); HGB 14.1 gm/dL (11.4-16.0); Lymphocytes # (A) 3.3 k/uL (1.0-4.8); Lymphocytes % (A) 23 %; MCH 30.1 pg (25.0-35.0); MCHC 33.2 g/dL (31.0-37.0); MCV 90.7 fL (80.0-100.0); Mean Platelet Volume 7.6; Monocytes # (A) 0.5 k/uL (0-1.0); Monocytes % (A) 4 %; Neutrophils # (A) 10.1 k/uL (1.3-7.7); Neutrophils % (A) 71 %; Platelet Count 412 k/uL (150-450); RBC 4.68 m/uL (3.80-5.40); RDW 13.2 % (11.5-15.5); WBC 14.2 k/uL (3.8-10.6)
[2023-07-26 08:55] LABS: ALT 18 U/L (4-34); AST 17 U/L (14-36); African American GFR (CKD) >90 (>60 ml/min/1.73 sqM); Albumin 4.3 g/dL (3.5-5.0); Alkaline Phosphatase 62 U/L (38-126); Anion Gap 13 mmol/L; Blood Urea Nitrogen 15 mg/dL (7-17); Calcium 9.7 mg/dL (8.4-10.2); Carbon Dioxide 23 mmol/L (22-30); Chloride 103 mmol/L (98-107); Glucose 130 mg/dL (74-99); Non-African American GFR(CKD) >90 (>60 ml/min/1.73 sqM); Potassium 4.1 mmol/L (3.5-5.1); Sodium 139 mmol/L (137-145); Total Bilirubin 0.3 mg/dL (0.2-1.3); Total Protein 7.1 g/dL (6.3-8.2)
--- NOTE | 2023-07-26 09:13 | XR ---
EXAMINATION TYPE: XR chest 2V DATE OF EXAM: 07/26/2023 9:08 AM CLINICAL INDICATION:Female, 37 years old with history of cough; COMPARISON: Chest radiographs from 02/25/2023 TECHNIQUE: XR chest 2V Frontal and lateral views of the chest. FINDINGS: Lungs/Pleura: There is no evidence of pleural effusion, focal consolidation, or pneumothorax. Pulmonary vascularity: Unremarkable. Heart/mediastinum: Cardiomediastinal silhouette is unremarkable. Musculoskeletal: No acute osseous pathology. Other findings: None IMPRESSION: No acute cardiopulmonary disease/process.
--- NOTE | 2023-07-26 09:18 | ED ---
URI HPI - General Chief Complaint: Upper Respiratory Infection Stated Complaint: Respiratory infection Time Seen by Provider: 07/26/23 07:46 Source: patient Mode of arrival: ambulatory Limitations: no limitations - History of Present Illness Initial Comments: 37-year-old female with no significant past medical history presents to the emergency department with a chief complaint of cough. Patient has had a cough, congestion 5 days. She was seen and evaluated at urgent care who provided her with amoxicillin and a steroid. She has completed both medications with no improvement of her symptoms. She reports worsening productive cough with yellow and green sputum. She denies any fevers however she does feel chilled. She is up-to-date on vaccinations. Denies shortness of breath, palpitations, dyspnea, chest pain, nausea, vomiting. - Related Data Home Medications Medication Instructions Recorded Confirmed Celecoxib [CeleBREX] 100 mg PO BID 03/20/20 04/01/23 busPIRone HCl [Buspar] 15 mg PO QID 03/20/20 04/01/23 hydrOXYzine HCL [Atarax] 50 mg PO TID PRN 08/22/21 04/01/23 ALPRAZolam [Xanax] 0.25 mg PO TID PRN 06/30/22 04/01/23 buPROPion XL [Wellbutrin XL] 300 mg PO QAM 06/30/22 04/01/23 Cyclobenzaprine [Flexeril] 10 mg PO HS PRN 12/17/22 04/01/23 Divalproex [Depakote] 250 mg PO TID 12/17/22 04/01/23 Levothyroxine Sodium [Synthroid] 75 mcg PO DAILY 03/16/23 04/01/23 metFORMIN HCL [metFORMIN HCL ER 500 mg PO DAILY 03/16/23 04/01/23 Osmotic] Liraglutide [Saxenda] 1.2 mg SQ DAILY 04/01/23 04/01/23 Previous Rx's Medication Instructions Recorded Albuterol Inhaler [Ventolin Hfa 1 - 2 puff INHALATION Q6H PRN #1 02/25/23 Inhaler] each Albuterol Nebulized [Ventolin 2.5 mg INHALATION Q4H PRN #75 ml 02/25/23 Nebulized] Allergies Allergy/AdvReac Type Severity Reaction Status Date / Time codeine Allergy Itching Verified 07/26/23 07:43 Review of Systems ROS Statement: Those systems with pertinent positive or pertinent negative responses have been documented in the HPI. ROS Other: All systems not noted in ROS Statement are negative. Past Medical History Past Medical History: Diabetes Mellitus, Osteoarthritis (OA), Skin Disorder, Thyroid Disorder Additional Past Medical History / Comment(s): Migraines, bulging discs in neck, deteriorating discs in back, Vitiligo. History of Any Multi-Drug Resistant Organisms: None Reported Past Surgical History: Section, Tubal Ligation, Uterine Ablation Additional Past Surgical History / Comment(s): Surgery for incomplete cleft lip, sinus surgery.,PAIN CLINIC PROCEDURES Past Anesthesia/Blood Transfusion Reactions: No Reported Reaction Past Psychological History: Anxiety, Depression Smoking Status: Current every day smoker Past Alcohol Use History: Occasional Past Drug Use History: None Reported - Past Family History Mother Family Medical History: Diabetes Mellitus General Exam - General Exam Comments Initial Comments: General: Alert, in no acute distress Head: atraumatic normocephalic. Eyes PERRL, EOMI intact, mucous membranes moist Respiratory: Lungs clear to auscultation bilaterally Cardiovascular: Rate regular rate and rhythm Abdominal: Soft without guarding or rebound Extremities: Normal inspection with full range of motion and normal capillary r efill Neuroogic: alert and oriented 3, CN II-XII intact, able to ambulate with steady gait Skin: warm dry and intact with normal color Limitations: no limitations Course Vital Signs 07/26/23 07/26/23 07:41 12:29 Temperature 98.4 F 98.2 F Pulse Rate 94 99 Respiratory 22 16 Rate Blood Pressure 133/95 125/90 O2 Sat by Pulse 99 100 Oximetry - Reevaluation(s) Reevaluation #1: 07/26/23 09:39 He shouldn't reevaluated. Patient aware awaiting urinalysis results. Patient reports she feels a little bit improved. Reevaluation #2: 07/26/23 11:49 Reevaluated. Patient agreeable with the plan for discharge home. Medical Decision Making - Medical Decision Making Was pt. sent in by a medical professional or institution (, PA, EQUIP TECH, urgent care, hospital, or correction...) When possible be specific @ -[No] Did you speak to anyone other than the patient for history (EMS, parent, family, police, friend...)? What history was obtained from this source @ -[No] Did you review nursing and triage notes (agree or disagree)? Why? @ -[I reviewed and agree with nursing and triage notes] Were old charts reviewed (outside hosp., previous admission, EMS record, old EKG, old radiological studies, urgent care reports/EKG's, correction records)? Report findings @ -[No old charts were reviewed] Differential Diagnosis (chest pain, altered mental status, abdominal pain women, abdominal pain men, vaginal bleeding, weakness, fever, dyspnea, syncope, headache, dizziness, GI bleed, back pain, seizure, CVA, palpatations, mental health, musculoskeletal)? @ -[not applicable] EKG interpreted by me (3pts min.). @ -[As above] X-rays interpreted by me (1pt min.). @ Chest x-ray does not reveal any pleural consolidation or cardiomegaly CT interpreted by me (1pt min.). @ -[None done] U/S interpreted by me (1pt. min.). @ -[None done] What testing was considered but not performed or refused? (CT, X-rays, U/S, labs)? Why? @ -[None] What meds were considered but not given or refused? Why? @ -[None] Did you discuss the management of the patient with other professionals (professionals i.e. , PA, EQUIP TECH, lab, RT, psych nurse, clinical social work aide, religion department chair, teacher, special forces warrant officer, wrapper caser)? Give summary @ -[No] Was smoking cessation discussed for >3mins.? @ -[No] Was critical care preformed (if so, how long)? @ -[No] Were there social determinants of health that impacted care today? How? (Homelessness, low income, unemployed, alcoholism, drug addiction, transportation, low edu. Level, literacy, decrease access to med. care, nursing home, rehab)? @ -[No] Was there de-escalation of care discussed even if they declined (Discuss DNR or withdrawal of care, Hospice)? DNR status @ -[No] What co-morbidities impacted this encounter? (DM, HTN, Smoking, COPD, CAD, Cancer, CVA, ARF, Chemo, Hep., AIDS, mental health diagnosis, sleep apnea, morbid obesity)? @ -[None] Was patient admitted / discharged? Hospital course, mention meds given and route, prescriptions, significant lab abnormalities, going to OR and other pertinent info. @ -Discharged. This is a 37-year-old female who presents the emergency department with cough. . Patient had a thorough history and physical exam performed. Physical exam unremarkable. Heart rate regular rate and rhythm, lungs clear to auscultation bilaterally abdomen is soft and nontender. Vital signs stable. Patient had viral swabs, blood work and chest x-ray which w ere unremarkable. I discussed the results in detail with the patient verbalized understanding all questions were addressed. Discharged in stable condition with recommended close follow-up with PCP in 1-2 days. Case discussed with Dr. Tsang [facility] who agrees with plan of care Undiagnosed new problem with uncertain prognosis? @ -[No] Drug Therapy requiring intensive monitoring for toxicity (Heparin, Nitro, Insulin, Cardizem)? @ -[No] Were any procedures done? @ -[No] Diagnosis/symptom? @ -Cough Acute, or Chronic, or Acute on Chronic? @ -Acute Uncomplicated (without systemic symptoms) or Complicated (systemic symptoms)? @ -[default] Side effects of treatment? @ -Uncomplicated Exacerbation, Progression, or Severe Exacerbation? @ -[No] Poses a threat to life or bodily function? How? (Chest pain, USA, MT, pneumonia, PE, COPD, DKA, ARF, appy, cholecystitis, CVA, Diverticulitis, Homicidal, Suicidal, threat to staff... and all critical care pts) @ -Low likelihood - Lab Data Result diagrams: 07/26/23 08:07 07/26/23 08:07 Lab Results 07/26/23 07/26/23 07/26/23 Range/Units 08:03 08:07 08:07 WBC 14.2 H (3.8-10.6) k/uL RBC 4.68 (3.80-5.40) m/uL Hgb 14.1 (11.4-16.0) gm/dL Hct 42.4 (34.0-46.0) % MCV 90.7 (80.0-100.0) fL MCH 30.1 (25.0-35.0) pg MCHC 33.2 (31.0-37.0) g/dL RDW 13.2 (11.5-15.5) % Plt Count 412 (150-450) k/uL MPV 7.6 Neutrophils % 71 % Lymphocytes % 23 % Monocytes % 4 % Eosinophils % 1 % Basophils % 0 % Neutrophils # 10.1 H (1.3-7.7) k/uL Lymphocytes # 3.3 (1.0-4.8) k/uL Monocytes # 0.5 (0-1.0) k/uL Eosinophils # 0.1 (0-0.7) k/uL Basophils # 0.0 (0-0.2) k/uL Sodium (137-145) mmol/L Potassium (3.5-5.1) mmol/L Chloride (98-107) mmol/L Carbon Dioxide (22-30) mmol/L Anion Gap mmol/L BUN (7-17) mg/dL Creatinine (0.52-1.04) mg/dL Est GFR (CKD-EPI)AfAm (>60 ml/min/1.73 sqM) Est GFR (CKD-EPI)NonAf (>60 ml/min/1.73 sqM) Glucose (74-99) mg/dL Calcium (8.4-10.2) mg/dL Total Bilirubin (0.2-1.3) mg/dL AST (14-36) U/L ALT (4-34) U/L Alkaline Phosphatase (38-126) U/L Total Protein (6.3-8.2) g/dL Albumin (3.5-5.0) g/dL Urine Color Yellow Urine Appearance Clear (Clear) Urine pH 6.0 (5.0-8.0) Ur Specific [place] >1.030 (1.001-1.035) Urine Protein 1+ (Negative) Urine Glucose (UA) Negative (Negative) Urine Ketones Negative (Negative) Urine Blood Negative (Negative) Urine Nitrite Negative (Negative) Urine Bilirubin Negative (Negative) Urine Urobilinogen <2.0 (<2.0) mg/dL Ur Leukocyte Esterase Negative (Negative) Urine HCG, Qual Not Detected (Not Detectd) Influenza Type A (PCR) (Not Detectd) Influenza Type B (PCR) (Not Detectd) RSV (PCR) (Not Detectd) SARS-CoV-2 (PCR) (Not Detectd) 07/26/23 07/26/23 Range/Units 08:07 08:07 WBC (3.8-10.6) k/uL RBC (3.80-5.40) m/uL Hgb (11.4-16.0) gm/dL Hct (34.0-46.0) % MCV (80.0-100.0) fL MCH (25.0-35.0) pg MCHC (31.0-37.0) g/dL RDW (11.5-15.5) % Plt Count (150-450) k/uL MPV Neutrophils % % Lymphocytes % % Monocytes % % Eosinophils % % Basophils % % Neutrophils # (1.3-7.7) k/uL Lymphocytes # (1.0-4.8) k/uL Monocytes # (0-1.0) k/uL Eosinophils # (0-0.7) k/uL Basophils # (0-0.2) k/uL Sodium 139 (137-145) mmol/L Potassium 4.1 (3.5-5.1) mmol/L Chloride 103 (98-107) mmol/L Carbon Dioxide 23 (22-30) mmol/L Anion Gap 13 mmol/L BUN 15 (7-17) mg/dL Creatinine 0.78 (0.52-1.04) mg/dL Est GFR (CKD-EPI)AfAm >90 (>60 ml/min/1.73 sqM) Est GFR (CKD-EPI)NonAf >90 (>60 ml/min/1.73 sqM) Glucose 130 H (74-99) mg/dL Calcium 9.7 (8.4-10.2) mg/dL Total Bilirubin 0.3 (0.2-1.3) mg/dL AST 17 (14-36) U/L ALT 18 (4-34) U/L Alkaline Phosphatase 62 (38-126) U/L Total Protein 7.1 (6.3-8.2) g/dL Albumin 4.3 (3.5-5.0) g/dL Urine Color Urine Appearance (Clear) Urine pH (5.0-8.0) Ur Specific [place] (1.001-1.035) Urine Protein (Negative) Urine Glucose (UA) (Negative) Urine Ketones (Negative) Urine Blood (Negative) Urine Nitrite (Negative) Urine Bilirubin (Negative) Urine Urobilinogen (<2.0) mg/dL Ur Leukocyte Esterase (Negative) Urine HCG, Qual (Not Detectd) Influenza Type A (PCR) Not Detected (Not Detectd) Influenza Type B (PCR) Not Detected (Not Detectd) RSV (PCR) Not Detected (Not Detectd) SARS-CoV-2 (PCR) Not Detected (Not Detectd) Disposition Clinical Impression: Viral infection Disposition: HOME SELF-CARE Condition: Stable Instructions (If sedation given, give patient instructions): Upper Respiratory Infection (ED) Additional Instructions: Please continue to take benzonatate for cough Can take Tylenol or Motrin for generalized body aches and pains Please return to the nearest emergency department if symptoms worsen or persist Is patient prescribed a controlled substance at d/c from ED?: No Referrals: Uche Galvez MD [Primary Care Provider] - 1-2 days Time of Disposition: 11:49
[2023-07-26 11:56] LABS: Color,Urine Yellow
[2023-07-26 11:57] LABS: Appearance,Urine Clear (Clear); Specific Gravity,Urine >1.030 (1.001-1.035)
[2023-07-26 11:58] LABS: Bilirubin,Urine Negative (Negative); Blood,Urine Negative (Negative); Glucose,Urine (UA) Negative (Negative); Ketones,Urine Negative (Negative); Protein,Urine 1+ (Negative)
[2023-07-26 11:59] LABS: Leukocyte Esterase,Urine Negative (Negative); Nitrite,Urine Negative (Negative); Urobilinogen,Urine <2.0 mg/dL (<2.0)
[2023-07-26 12:42] VITALS: BP 125/90; PULSE 99; RESP 16; TEMP 98.2
== END 2023-07-26 12:30 | disposition home or self-care (01) ==
LOC: EC 07:37
DX: B34.9 Viral infection, unspecified (principal); E11.9 Type 2 diabetes mellitus without complications; E07.9 Disorder of thyroid, unspecified; F32.A Depression, unspecified; F17.200 Nicotine dependence, unspecified, uncomplicated; Z79.890 Hormone replacement therapy; Z79.899 Other long term (current) drug therapy; Z79.84 Long term (current) use of oral hypoglycemic drugs; Z88.5 Allergy status to narcotic agent; Z20.822 Contact with and (suspected) exposure to COVID-19
CPT/HCPCS: 36415; 71046; 80053; 81001; 81025; 85025; 87636; 99284

== ENCOUNTER → 2024-12-27 | Outpatient (CLI) | payer OTHER ==
[2024-12-27 14:24] VITALS: BP 131/88; PULSE 105; RESP 16; TEMP 98.2; BMI 37.5
--- NOTE | 2024-12-27 14:45 | P.HPBAR ---
Bariatric H&P - History & Physicial H&P Date: 12/27/24 History & Physicial: Visit/CC: new Patient initial contact: Initial weight: 107.246 kg Initial weight in pounds: 236.44 Height: 5 ft 6.5 in Initial BMI: 37.5 Last weight: Current weight: 107.246 kg Current weight in pounds: 236.44 Current BMI: 37.5 [place] body weight (based on NIH guidelines): 60.22 kg Excess body weight loss: 0.0% The patient is a 39 year-old F who presents for Bariatric Assessment. Highest weight 262 pounds. She was on Wegovey and now Zepbound for 6 months and lost 50 pounds then Zepbound. Once in a lifetime. Wegovy was causing stomach upset. She takes omeprazole. Will need upper scope. Start food journal. She only eats daily. Labs and high risk of malnutrition. She has 1/2 thyroid and has hair thinning. Target 80 grams of protein. Water drink only 32 oz. Goal is 80 oz. Thyroid removed for overactive and tumor. Goal to get of medciations. She has back pain, no hips. Has knees and ankle and feet. Has trouble with sleep. She feels sore. She works at [email or web address]. Still has gallbladder. No stomach, es ophageal cancer. Mom has paralyzed diaphragm. No blood in stools. Dr Aparicio did blood work. Not known diabetes. Jaclyn had blood clots. Open to procedures. Past Medical History Past Medical History: Diabetes Mellitus, Osteoarthritis (OA), Skin Disorder, Thyroid Disorder Additional Past Medical History / Comment(s): Migraines, bulging discs in neck, deteriorating discs in back, Vitiligo. History of Any Multi-Drug Resistant Organisms: None Reported Past Surgical History: Section, Tubal Ligation, Uterine Ablation Additional Past Surgical History / Comment(s): Surgery for incomplete cleft lip, sinus surgery.,PAIN CLINIC PROCEDURES Past Anesthesia/Blood Transfusion Reactions: No Reported Reaction Past Psychological History: Anxiety, Depression Smoking Status: Current every day smoker Past Alcohol Use History: Occasional Additional Past Alcohol Use History / Comment(s): Smokes 1/2 PPD for 20 yrs. Past Drug Use History: None Reported Additional Drug Use History / Comment(s): Marijuana - Past Family History Mother Family Medical History: Diabetes Mellitus Surgical - Exam Vital Signs Temp Pulse Resp BP 98.2 F 105 H 16 131/88 12/27/24 14:09 12/27/24 14:09 12/27/24 14:09 12/27/24 14:09 Bariatric Checklist Checklist: Plan: Checklist: EGD: 1. Hiatal hernia: 2. H. Pylori: HgbA1c: Vitamin D: Smoking: Current every day smoker Primary care physician referral: Leonor Psychiatry clearance: Cardiology clearance: Sleep study: Diet journal: VTE risk score: VTE risk level: Rehab needs at discharge:
== END ==
LOC: BARWHC3 13:47
PROVIDERS: ATTEND Surgery Plastic and Reconstructive Surgery
DX: E66.01 Morbid (severe) obesity due to excess calories (principal); F17.210 Nicotine dependence, cigarettes, uncomplicated; Z88.5 Allergy status to narcotic agent; Z68.37 Body mass index [BMI] 37.0-37.9, adult
CPT/HCPCS: 99212

== ENCOUNTER 2025-03-19 06:52 | Day surgery (SDC) | payer OTHER ==
[2025-03-16 09:12] VITALS: BMI 40.0
[2025-03-19] MEDS: IV FLUID CONTINUATION 1,000 ML IV ONE (07:05)
[2025-03-19 07:19] VITALS: RESP 16; TEMP 97.6
[2025-03-19 07:28] LABS: Glucose,Whole Blood 119 mg/dL (70-110)
[2025-03-19] MEDS: LACTATED RINGERS 1,000 ML IV SCH (07:29)
[2025-03-19] MEDS ORDERED: PROPOFOL 10 MG/ML 20 ML VIAL IV ONE (07:36)
--- NOTE | 2025-03-19 07:40 | P.GSHP ---
History of Present Illness H&P Date: 03/19/25 CHIEF COMPLAINT: GERD and dysphagia HISTORY OF PRESENT ILLNESS: The patient is a 39-year-old female who presents reports gastroesophageal reflux disease and dysphagia. Upper endoscopy was offered for further evaluation and management. PAST MEDICAL HISTORY: Please see list. PAST SURGICAL HISTORY: Please see list. MEDICATIONS: Please see list. ALLERGIES: Please see list. SOCIAL HISTORY: No illicit drug use FAMILY HISTORY: No reports of Crohn disease or ulcerative colitis. REVIEW OF ORGAN SYSTEMS: CONSTITUTIONAL: No reports of fevers or chills. GI: Denies any blood in stools or constipation. PHYSICAL EXAM: VITAL SIGNS: Stable GENERAL: Well-developed and pleasant in no acute distress. HEENT: No scleral icterus. Extraocular movements grossly intact. Moist buccal mucosa. NECK: Supple without lymphadenopathy. CHEST: Unlabored respirations. Equal bilateral excursions. CARDIOVASCULAR: Regular rate and rhythm. Distal 2+ pulses. ABDOMEN: Soft, nondistended. MUSCULOSKELETAL: No clubbing, cyanosis, or edema. ASSESSMENT: 1. Gastroesophageal reflux disease 2. Dysphagia PLAN: 1. Recommend proceeding with an upper endoscopy Past Medical History Past Medical History: Diabetes Mellitus, Osteoarthritis (OA), Skin Disorder, Thyroid Disorder Additional Past Medical History / Comment(s): Migraines, bulging discs in neck, deteriorating discs in back, Vitiligo. DIET CONTROL DM, History of Any Multi-Drug Resistant Organisms: None Reported Past Surgical History: Section, Tubal Ligation, Uterine Ablation Additional Past Surgical History / Comment(s): Surgery for incomplete cleft lip, sinus surgery.,PAIN CLINIC PROCEDURES Past Anesthesia/Blood Transfusion Reactions: No Reported Reaction Smoking Status: Current some day smoker - Past Family History Mother Family Medical History: Diabetes Mellitus Medications and Allergies Home Medications Medication Instructions Recorded Confirmed Type busPIRone HCl [Buspar] 15 mg PO BID 03/20/20 03/19/25 History hydrOXYzine HCL [Atarax] 50 mg PO TID PRN 08/22/21 03/19/25 History ALPRAZolam [Xanax] 0.5 mg PO DIRECTED PRN 06/30/22 03/19/25 History buPROPion XL [Wellbutrin XL] 300 mg PO QAM 06/30/22 03/19/25 History Cyclobenzaprine [Flexeril] 10 mg PO HS PRN 12/17/22 03/19/25 History Divalproex [Depakote] 250 mg PO BID 12/17/22 03/19/25 History Levothyroxine Sodium [Synthroid] 88 mcg PO DAILY 03/16/23 03/19/25 History Omeprazole 20 mg PO DAILY 12/27/24 03/19/25 History Semaglutide [Wegovy] 0.25 mg SQ SA 03/16/25 03/19/25 History Allergies Allergy/AdvReac Type Severity Reaction Status Date / Time codeine Allergy Itching Verified 03/19/25 07:14 Surgical - Exam Vital Signs Temp Pulse Resp BP Pulse Ox 97.6 F 88 16 127/94 97 03/19/25 07:17 03/19/25 07:17 03/19/25 07:17 03/19/25 07:17 03/19/25 07:17 Results - Labs Abnormal Lab Results - Last 24 Hours (Table) 03/19/25 Range/Units 07:26 POC Glucose (mg/dL) 119 H (70-110) mg/dL
--- NOTE | 2025-03-19 07:57 | P.PCN ---
Date of Procedure: 03/19/25 Description of Procedure: PREOPERATIVE DIAGNOSIS: Gastroesophageal reflux disease. Morbid obesity. Dysphagia POSTOPERATIVE DIAGNOSIS: Gastroesophageal reflux disease. Gastroparesis Moderate retained food Diaphragmatic hiatal hernia OPERATION: Esophagogastroduodenoscopy SURGEON: Loren Alvarez MD ANESTHESIA: MAC. INDICATIONS: The patient is a 39-year-old female who presents with dysphagia and reflux disease. Benefits and risks of the procedure were described. Informed consent was obtained. DESCRIPTION: The patient was brought into the endoscopy suite and laid in the left lateral decubitus position. An Olympus gastroscope was passed along the posterior oropharynx down to the distal esophagus where the squamocolumnar junction was encountered at 35 cm from the incisors. The stomach was entered and moderate retained food was found. The entire stomach prohibiting complete assessment of the stomach such as ulcers, lower esophageal sphincter. Additional findings are listed below. The squamocolumnar junction demonstrated LA grade B erosive esophagitis. The stomach was desufflated. The patient tolerated the procedure well. FINDINGS: Squamocolumnar junction 35 cm from the incisors. Diaphragmatic hiatus at 40 cm. Hiatal hernia, 5 cm Moderate retained food throughout the entire stomach consistent with gastroparesis Hill grade -- lower esophageal valve, unable to obtain due to moderate gastroparesis prohibiting retroflexion of the scope LA grade B erosive esophagitis. RECOMMENDATIONS: Reglan started for gastroparesis of moderate retained food. Recommend reassessment with upper endoscopy after prolonged n.p.o. status Plan - Discharge Summary Discharge Rx Participant: No New Discharge Prescriptions: New Metoclopramide [Reglan] 10 mg PO ACHS #30 tab Continue busPIRone HCl [Buspar] 15 mg PO BID Cyclobenzaprine [Flexeril] 10 mg PO HS PRN PRN Reason: Muscle Spasm Omeprazole 20 mg PO DAILY Semaglutide [Wegovy] 0.25 mg SQ SA hydrOXYzine HCL [Atarax] 50 mg PO TID PRN PRN Reason: PANIC ATTACKS buPROPion XL [Wellbutrin XL] 300 mg PO QAM ALPRAZolam [Xanax] 0.5 mg PO DIRECTED PRN PRN Reason: Anxiety Divalproex [Depakote] 250 mg PO BID Levothyroxine Sodium [Synthroid] 88 mcg PO DAILY Discharge Medication List busPIRone HCl [Buspar] 15 mg PO BID 03/20/20 [History] hydrOXYzine HCL [Atarax] 50 mg PO TID PRN 08/22/21 [History] ALPRAZolam [Xanax] 0.5 mg PO DIRECTED PRN 06/30/22 [History] buPROPion XL [Wellbutrin XL] 300 mg PO QAM 06/30/22 [History] Cyclobenzaprine [Flexeril] 10 mg PO HS PRN 12/17/22 [History] Divalproex [Depakote] 250 mg PO BID 12/17/22 [History] Levothyroxine Sodium [Synthroid] 88 mcg PO DAILY 03/16/23 [History] Omeprazole 20 mg PO DAILY 12/27/24 [History] Semaglutide [Wegovy] 0.25 mg SQ SA 03/16/25 [History] Metoclopramide [Reglan] 10 mg PO ACHS #30 tab 03/19/25 [Rx] Follow up Appointment(s)/Referral(s): Loren Alvarez MD [STAFF PHYSICIAN] - 04/04/25 3:00 pm Patient Instructions/Handouts: Gastroparesis (DC) Activity/Diet/Wound Care/Special Instructions: Drink plenty of fluids today due to moderate retained food in stomach Discharge Disposition: HOME SELF-CARE
[2025-03-19 08:15] VITALS: BP 130/87; PULSE 88
== END 2025-03-19 09:20 | disposition home or self-care (01) ==
LOC: ORWHC2ENDO 06:52
PROVIDERS: ATTEND Surgery Plastic and Reconstructive Surgery
DX: K21.00 Gastro-esophageal reflux disease with esophagitis, without bleeding (principal); K44.9 Diaphragmatic hernia without obstruction or gangrene; T18.2XXA Foreign body in stomach, initial encounter; W44.F3XA Food entering into or through a natural orifice, initial encounter; E11.43 Type 2 diabetes mellitus with diabetic autonomic (poly)neuropathy; K31.84 Gastroparesis; E07.9 Disorder of thyroid, unspecified; F41.9 Anxiety disorder, unspecified; F32.A Depression, unspecified; E66.01 Morbid (severe) obesity due to excess calories; G43.909 Migraine, unspecified, not intractable, without status migrainosus; F17.200 Nicotine dependence, unspecified, uncomplicated; Z79.890 Hormone replacement therapy; Z79.85 Long-term (current) use of injectable non-insulin antidiabetic drugs; Z79.899 Other long term (current) drug therapy; Z88.5 Allergy status to narcotic agent
CPT/HCPCS: 81025; 43235; J2704